=== PATIENT | male | born 1950 | race Caucasian/White ===

== ENCOUNTER 2019-10-18 19:21 | Inpatient (IN) | payer MEDICARE ==
[2019-10-18 19:00] VITALS: BP 108/69
[2019-10-18 19:15] VITALS: BP 111/77
[~2019-10-18 19:21] MED LIST: ACET325C7 PO; AMLO2.5T4 PO; ATOR40TA PO; LACT10SO27 PO; LOSA100T57 PO; MELA5TAB14 PO; MULT-166 PO; OMEG-160 PO; OXYC-473 PO; POLY17PO6 NG; TMSL.4C PO; TR1C15 TP
[2019-10-18 19:30] VITALS: BP 118/81
[2019-10-18] MEDS ORDERED: LEVETIRACETAM INJECTION 1,000 MG in NS (IVPB) 100 ML IV SCH ×4 (19:30)
[2019-10-18] MEDS ORDERED: LORazepam INJ 2 MG/ML (ATIVAN) VIAL IVP PRN (19:30)
[2019-10-18] MEDS ORDERED: NS IV 1000 ML 1,000 ML IV SCH (19:30)
[2019-10-18] MEDS ORDERED: CATHETER FLUSH 10 ML SYR IV PRN (19:30)
--- NOTE | 2019-10-18 19:31 | Short Stay Summary-Hospitalist ---
History of Present Illness HPI/Chief Complaint CC: New onset seizure 6 hours after arriving from [facility] to [facility] HPI: This is a 68yoWM patient who arrived from via private vehicle to [facility] after a complicated course at for brain compression requiring TOOL AND DIE INSPECTOR shunt yesterday who had just had an uneventful stay at [facility] when he groaned and the RN noted patient was unresponsive and had seizure activity with clenching of jaw and moving extremities in a flail like manner. RN called me immediately after rapid response called and patient was transferred to ICU but remained with stable VS. Patient was given Ativan 0.5mg IV x 1 which aborted the seizure and is currently responding and moving all extremities with command but drowsy. Source: RN/MD Exam Limitations: clinical condition Date Seen 10/18/19 Time Seen by a Provider: 19:10 Attending Physician Dena Aceves Erik M MD Referring Physician Date of Admission Oct 18, 2019 at 19:21 Home Medications & Allergies Home Medications Reviewed patient Home Medication Reconciliation performed by pharmacy medication reconciliations remediation technician and/or nursing. Patients Allergies have been reviewed. 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[place]) Alcohol Use: Occasionally Uses Alcohol Beverage of Choice: Beer Smoking Status: Never a Smoker Recent Hopitalizations: No Immunizations Up To Date Pediatric: Yes Date of Pneumonia Vaccine: Jan 18, 2019 Seasonal Allergies Seasonal Allergies: No Past Medical History Surgeries: Brain Shunt (10/17/19) Cardiac: Hypertension hydrocephalus Genitourinary: Benign Prostatic Hyperpl retention HEENT: Double Vision Loss of Vision: Denies Hearing Impairment: Denies Cancer: Melanoma Did You Recieve Any Treatments: Yes What Type of Treatment Did You: Surgical Intervention History of Blood Disorders: No Adverse Reaction to Blood Shelley: No Family History Arthritis G8 SISTER Hypertension G8 SISTER Review of Systems Constitutional: see HPI Physical Exam Physical Exam Vital Signs Capillary Refill : Height, Weight, BMI Height: '" Weight: lbs. oz. kg; 20.96 BMI Method: General Appearance: No Apparent Distress, WD/WN, Chronically ill, Thin Eyes: Bilateral Eye Normal Inspection, Bilateral Eye PERRL HEENT: PERRL/EOMI, Normal ENT Inspection, Pharynx Normal Neck: Full Range of Motion, Normal Inspection, Non Tender, Supple, Carotid Bruit Respiratory: Chest Non Tender, Lungs Clear, Normal Breath Sounds, No Accessory Muscle Use, No Respiratory Distress Cardiovascular: Regular Rate, Rhythm, No Edema, No Gallop, No JVD, No Murmur, Normal Peripheral Pulses Gastrointestinal: Normal Bowel Sounds, No Organomegaly, No Pulsatile Mass, Non Tender, Soft Back: Normal Inspection, No CVA Tenderness, No Vertebral Tenderness Extremity: Normal Capillary Refill, Normal Inspection, Normal Range of Motion, Non Tender, No Calf Tenderness, No Pedal Edema Neurologic/Psychiatric: Alert, Oriented x3, No Motor/Sensory Deficits (drowsy), Normal Mood/Affect, range aid II-XII Norm as Tested Skin: Normal Color, Warm/Dry Lymphatic: No Adenopathy Results Results/Procedures Labs Patient resulted labs reviewed. Short Stay Diagnosis Discharge Diagnosis-Short Stay Admission Diagnosis Assessment: Seizure new onset s/p TOOL AND DIE INSPECTOR shunt at [facility] 10/17/19 due to brain compression Low pressure hydrocephalus SIADH BPH Lomeli catheter due to retention Urology placed at [facility] COVID-19 negative Acute encephalopathy ETOH use Plan: IV Keppra IV Ativan [facility] transfer Final Discharge Diagnosis Assessment: Seizure new onset s/p TOOL AND DIE INSPECTOR shunt at [facility] 10/17/19 due to brain compression Low pressure hydrocephalus SIADH BPH Lomeli catheter due to retention Urology placed at [facility] COVID-19 negative Acute encephalopathy ETOH use Plan: IV Keppra IV Ativan [facility] transfer Conclusion Plan Assessment: Seizure new onset s/p TOOL AND DIE INSPECTOR shunt at [facility] 10/17/19 due to brain compression Low pressure hydrocephalus SIADH BPH Lomeli catheter due to retention Urology placed at [facility] COVID-19 negative Acute encephalopathy ETOH use Plan: IV Keppra IV Ativan KU transfer CT brain without contrast Vitals stable and no neuro deficits Diagnosis/Problems Diagnosis/Problems (1) Seizure (2) Hydrocephalus DENA ACEVES DO Oct 18, 2019 19:31
[2019-10-18 19:45] VITALS: BP 117/82
[2019-10-18 20:15] VITALS: BP 137/86
--- OUTSIDE RECORDS SUMMARY | 2019-10-18 20:41 | XMS REPORT | Continuity of Care Document ---
Author Organization Unknown Address Unknown Phone Unavailable Allergies Active Description Code Type Severity Reaction Onset Reported/Identified Relationship to Patient Clinical Status Yes No Allergy Information Available [id number] Drug Allergy Unknown N/A 020 Medications There is no data. Problems There is no data. Procedures There is no data. Results Test Result Range Capillary blood glucose measurement by g lucometer (mass/volume) - 10/18/19 18:51 Capillary blood glucose measurement by glucometer (mas s/volume) 138 mg/dL 70-110 Complete blood count (CBC) with automate d white blood cell (WBC) differential - 10/18/19 19:10 Blood leukocytes automated count (number/volume) 11.8 10*3/uL 4.3-11.0 Blood erythrocytes automated count (number/volume) 4.29 10*6/uL 4.35-5.85 Venous blood hemoglobin measurement (mass/volume) 13.5 g/dL 13.3-17.7 Blood hematocrit (volume fraction) 41 % 40-54 Automated erythrocyte mean corpuscular volume 95 [ foz_us] 80-99 Automated erythrocyte mean corpuscular h emoglobin (mass per erythrocyte) 31 pg 25-34 Automated erythrocyte mean corpuscular h emoglobin concentration measurement (mass/volume) 33 g/dL 32-36 Automated erythrocyte distribution width ratio 13. 1 % 10.0- 14.5 Automated blood platelet count (count/volume) 351 10*3/uL 130-400 Automated blood platelet mean volume measurement 9.3 [foz_us] 7.4-10.4 Automated blood neutrophils/100 leukocytes 85 % 42-75 Automated blood lymphocytes/100 leukocytes 9 % 12-44 Blood monocytes/100 leukocytes 6 % 0-12 Automated blood eosinophils/100 leukocytes 0 % 0-10 Automated blood basophils/100 leukocytes 0 % 0-10 Blood neutrophils automated count (number/volume) 10.1 10*3 1.8-7.8 Blood lymphocytes automated count (number/volume) 1.0 10*3 1.0-4.0 Blood monocytes automated count (number/volume) 0. 7 10*3 0.0-1.0 Automated eosinophil count 0.0 10*3/uL 0 .0-0.3 Automated blood basophil count (count/volume) 0.0 10*3/uL 0.0-0.1 Comprehensive metabolic panel - 10/18/19 19:10 Serum or plasma sodium measurement (moles/volume) 138 mmol/L 135-145 Serum or plasma potassium measurement (moles/volume) 4.0 mmol/L 3.6-5.0 Serum or plasma chloride measurement (moles/volume) 103 mmol/L 98-107 Carbon dioxide 18 mmol/L 21-32 Serum or plasma anion gap determination (moles/volume) 17 mmol/L 5-14 Serum or plasma urea nitrogen measurement (mass/volume ) 15 mg/dL 7-18 Serum or plasma creatinine measurement (mass/volume) 0.76 mg/dL 0.60-1.30 Serum or plasma urea nitrogen/creatinine mass ratio 20 NRG Serum or plasma creatinine measurement w ith calculation of estimated glomerular filtration rate > NRG Serum or plasma glucose measurement (mass/volume) 134 mg/dL 70-105 Serum or plasma calcium measurement (mass/volume) 9.2 mg/dL 8.5-10.1 Serum or plasma total bilirubin measurement (mass/volu me) 0.9 mg/dL 0.1-1.0 Serum or plasma alkaline phosphatase akil surement (enzymatic activity/volume) 68 U/L 40-136 Serum or plasma aspartate aminotransfera se measurement (enzymatic activity/volume) 15 U/L 5-34 Serum or plasma alanine aminotransferase measurement (enzymatic activity/volume) 25 U/L 0-55 Serum or plasma protein measurement (mass/volume) 6.5 g/dL 6.4-8.2 Serum or plasma albumin measurement (mass/volume) 4.0 g/dL 3.2-4.5 CALCIUM CORRECTED 9.2 mg/dL 8.5-10.1 Blood lactic acid measurement (moles/vol ume) - 10/18/19 19:10 Blood lactic acid measurement (moles/volume) 7.27 mmol/L 0.50-2.00 PROCALCITONIN (PCT) - 10/18/19 19:10 PROCALCITONIN (PCT) 0.03 ng/mL <0.10 Serum or plasma troponin i.cardiac measu rement (mass/volume) - 10/18/19 19:10 Serum or plasma troponin i.cardiac measurement (mass/v olume) < ng/mL <0.028 Encounters ACCT No. Visit Date/Time Discharge Status Pt. Type Provider Facility Loc./Unit Complaint [id number] 10/18/2019 19:21:[address] Inpatient LAURA CHEN DO Via [facility] ICU RAPID [id number] 10/18/2019 13:20:[address] Inpatient CHENSHAUN PAGAN DOI Via [facility] ICU HYDROCEPHALIUS
--- NOTE | 2019-10-18 23:03 | NUR ---
APPROX. 1900 - RECEIVED PT FROM ARU APPROX. 194 - PT TO CT SCAN 2029 - EMS LEFT FACILITY WITH PATIENT - HEADED TO [facility] 2044 - REPORT CALLED TO BASILIA GORDILLO AT [facility] 2099 - UPDATED FAMILY
--- NOTE | 2019-10-21 08:32 | Physician Query Clarification ---
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 There is moderate dilatation of the 3rd and 4th ventricles with no significant dilatation of the lateral ventricles. We do not have a previous study for comparison of ventricular size. There is a trace of blood in the occipital horns on both sides. There is a small 5 mm area of hemorrhage in the right frontal cortex superiorly. Shunt catheter is in place, as above. There is no significant mass effect. There is some subdural air on the left side compatible with recent surgery with a minimal trace of subdural fluid. Treatment: IV Levetiracetam Question: Can you further specify the underlying cause of the seizure per the clinical indicators above? Please document a response in the Progress Notes or Discharge Summary. 1. Hydrocephalus 2. Seizure underlying cause undetermined 3. Other, with explanation of the clinical findings. 4. Clinically undetermined, no explanation for the clinical findings. PHYSICIAN RESPONSE Can you specify per above: 1 Please remember a lack of response to the above will prompt a phone page by CDI/Coding staff. In responding to this query, please exercise your independent professional judgment. The purpose of this communication is to more accurately reflect the complexity of your patients condition. The fact that a question is asked does not imply that any particular answer is desired or expected. Thank you for your timely response to this clarification. Requestors name: Kyler [email or web address] THIS PHYSICIAN QUERY FORM IS A PERMANENT PART OF THE MEDICAL RECORD KYLER WELSH Oct 21, 2019 08:32 LAURA CHEN DO Oct 21, 2019 20:43
== END 2019-10-18 20:30 | disposition short-term general hospital (02) | DRG 57 ==
LOC: ICU 19:21
PROVIDERS: ADMIT Internal Medicine; ATTEND Internal Medicine
DX: G91.8 Other hydrocephalus (principal); G93.40 Encephalopathy, unspecified; E22.2 Syndrome of inappropriate secretion of antidiuretic hormone; R56.9 Unspecified convulsions; Z98.2 Presence of cerebrospinal fluid drainage device; N40.1 Benign prostatic hyperplasia with lower urinary tract symptoms; R33.8 Other retention of urine; Z72.89 Other problems related to lifestyle
CPT/HCPCS: 94760

== ENCOUNTER 2019-10-21 10:14 | Inpatient (IN) | payer MEDICARE ==
[~2019-10-21] VITALS: Ht 76 cm; Wt 79.2 kg
[2019-10-21] MEDS ORDERED: LEVE750T19 PO (13:15)
[2019-10-21] MEDS ORDERED: NF-NACL1GT PO (13:15)
[2019-10-21] MEDS ORDERED: FLEET ENEMA ADULT 1 EA BTL PR PRN (13:15)
[2019-10-21] MEDS ORDERED: BISACODYL 10 MG SUPP (DULCOLAX) PR PRN (13:15)
[2019-10-21] MEDS ORDERED: ALPRAZolam 0.25 MG (XANAX) TAB PO PRN (13:15)
[2019-10-21] MEDS ORDERED: DOCUSATE SODIUM 100 MG (COLACE) CAP PO PRN (13:15)
[2019-10-21] MEDS ORDERED: CALCIUM CARBONATE 500 MG (TUMS) TAB.CHEW PO PRN (13:15)
[2019-10-21] MEDS ORDERED: LACTULOSE SYRUP 10GM/15ML (ENULOSE) 30ML UDC PO PRN (13:15)
[2019-10-21] MEDS ORDERED: ACETAMINOPHEN 500 MG TAB (TYLENOL) PO PRN (13:15)
[2019-10-21] MEDS ORDERED: LOPERAMIDE 2 MG (IMODIUM) TABLET PO PRN (13:15)
[2019-10-21] MEDS ORDERED: diphenhydrAMINE 25 MG TAB (BENADRYL) PO PRN (13:15)
[2019-10-21] MEDS ORDERED: ONDANSETRON 4 MG (ZOFRAN) ORAL DISSOLVE TAB PO PRN (13:15)
[2019-10-21] MEDS ORDERED: guaiFENesin/CODEINE (ROBITUSSIN AC) 10ML UDC PO PRN (13:15)
[2019-10-21] MEDS ORDERED: HEPA500016 IJ (13:15)
[2019-10-21] MEDS ORDERED: MELATONIN 3 MG TABLET PO PRN (13:15)
--- NOTE | 2019-10-21 13:17 | NUR ---
I ENTERED THE MED REC USING THE DISCHARGE ORDERS FROM - ONCE MEDS HAVE BEEN CONTINUED I WILL INTERVIEW THE PT AND MAKE ANY CHANGES TO THE MED REC/NOTES NEEDED Addendum: 10/24/19 at 1514 by THAD ROLLE CPhT I SPOKE WITH THE PT AND CALLED THE [facility] TO COMPLETE THE MED REC MEDS REMOVED DUE TO PT NOT TAKING BEFORE : HEPARIN KEPPRA 750MG SODIUM CHLORIDE 1GM LACTULOSE TYLENOL 325MG AMLODIPINE 2.5MG MELATONIN 5MG OXYCODONE 5MG TRIAMCINOLONE 0.1% CM PT HAS TAKEN FLOMAX 0.4MG BEFORE HOWEVER THE LAST TIME IT WAS FILLED WAS 08-02-2018 #30- DUE TO THE RX AND PAST DUE FILL I DID NOT INCLUDE IT ON THE MED REC MEDICATIONS THAT HAVE BEEN ADDED DUE TO PT TAKING PRIOR TO : ZOFRAN 4MG LAST FILLED 09-27-2019 #40 TRIAMTERENE/HCTZ 37.5/25MG LAST FILLED 08-26-2019 #90 FILL DATES FOR MEDS THAT HAVE NOT CHANGED: ATORVASTATIN 80MG (PT TAKES TAB TO EQUAL 40MG) LAST FILLED 09-18-2019 #15/30DS LOSARTAN 100MG : LAST FILLED 10-08-2019 #30/30DS OTC MEDS THE PT TAKES: FISH OIL MIRALAX PRN MTV
--- NOTE | 2019-10-21 15:08 | NUR ---
Admitted to room 231, with an admitting diagnosis of hydrocephalus, on 10-21-19 from via , accompanied by .YOLANDA TORRE introduced to surroundings, call light, bed controls, phone, TV, temperature control, lights, meal times, smoking policy, visitor policy, side rail policy, bathrooms and showers. Patient Rights given to patient in the handbook.YOLANDA TORRE verbalizes understanding that [facility] is not responsible for the loss or damage to any personal effects or valuables that are kept in the patients posession during their hospitalization. The following Patient Care Plans were discussed with the : Discharge Planning, ,, and falls. YOLANDA TORRE verbalizes understanding of Interdisciplinary Patient Education. Patient and/or family were informed about the Rapid Response Team and its purpose. Patient received Patient Rights Booklet, which includes Privacy Act Statement and Data Collection Information Summary.
[2019-10-21 15:20] VITALS: BP 98/67
--- NOTE | 2019-10-21 15:31 | Occupational Therapy Eval ---
OT Evaluation-General/PLF Medical Diagnosis Admission Date Medical Diagnosis: hydrocephaly; s/p shunt placement Onset Date: Oct 07, 2019 Therapy Diagnosis Therapy Diagnosis: Decreased ADL status Precautions Precautions/Isolations: Fall Prevention, Standard Precautions, Pressure Ulcer Weight Bear Status Restrictions: No push/pull/lift/bend more than 10 lbs, shower neck down until 10/21. On 10/22 baby shampoo to wash incisions daily, pat dry and leave open to air. His abdominal incision is open to air. Do not submerge incision under water at all for 4 weeks (pool/tub). No ointment/cream/lotions to the incision line. 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 Syncopal episode prior to admission 10/05 where he was found on the floor. 10/05 hydrocephalus noted on scan. 10/06 found obtunded, intubated to protect airways, scan showed worsening hydro cephalus, transferred to [facility]. Pt transferred to [facility] ARU on 10/18/2019. Pt readmits to due to seizure episode, readmits to ARU 10/21/19. Social History Home: Multilevel Current Living Status: Significant Other Entry Into Home: Stairs Without Railing Steps Into Home: 2 Steps Inside Home: 8 ADL-Prior Level of Function SCALE: Activities may be completed with or without assistive devices. 3-Bnucvoglii-ttwfhlk completes the activity by him/herself with no assistance from a helper. 5-Set-up or Clean-up Assistance-helper sets up or cleans up; patient completes activity. [place] assists only prior to or following the activity. 4-Supervision or Touching Assistance-helper provides verbal cues and/or touching/steadying and/or contact guard assistance as patient completes activity. Assistance may be provided throughout the activity or intermittently. 3-Partial/Moderate Assistance-helper does LESS THAN HALF the effort. [place] lifts, holds or supports trunk or limbs, but provides less than half the effort. 2-Substantial/Maximal Assistance-helper does MORE THAN HALF the effort. [place] lifts or holds trunk or limbs and provides more than half the effort. 5-Spxojtiiw-xmisbl does ALL the effort. Patient does none of the effort to compl ete the activity. Or, the assistance of 2 or more helpers is required for the patient to complete the activity. If activity was not attempted, code reason: 7-Patient Refused. 9-Not Applicable-not attempted and the patient did not perform the activity before the current illness, exacerbation or injury. 10-Not Attempted due to Environmental Limitations-(lack of equipment, weather restraints, etc.). 88-Not Attempted due to Medical Conditions or Safety Concerns. ADL PLOF Comments Pt states IND without use of AD prior to admission. Pt no longer works, drives Self Care: Independent Functional Cognition: Independent DME/Equipment: Bath Chair, Grab Bars, Shower DME/Equipment Comments Pt's doffed glass door to walk in shower, gb and sc in shower. 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 Drive Self: Yes OT Current Status Subjective Pt transported by private vehicle to [facility]. Pt seen outside with , pt completes car transfer with CGA with walker to w/c. Pt pushed to ARU floor. Pt knowledgable of ARU expectations and OT role as pt was admitted 11/17 and d/c'd following day following seizure. Pt denies pain, alert/ oriented. Pt unable to answer some historical questions, though pt denies cognitive/ problem solving problems since seizures. Mental Status/Objective Patient Orientation: Person, Place, Situation Attachments: Lomeli Catheter Current Glasses/Contacts: Yes Hearing Aids: No Dentures/Partials: No Hand Dominance: Right Upper Extremity ROM WFL BUE Upper Extremity Coordination WFL BUE Upper Extremity Sensation WFL BUE Upper Extremity Strength WFL BUE (4/5 bilaterally) ADL-Treatment Eating (QC): 5 (per pt, pt is IND with task. Per previous notes, pt requires s/u for activity) Oral Hygiene (QC): 4 (CGA: based on clinical judgment, pt would require CGA while standing at sink level. Based on coordination/ sequencing, pt would be IND with task.) Shower/Bathe Self (QC): 7 (Pt denies at this time due to fatigue. ) Upper Body Dressing (QC): 7 (Pt denies at this time due to fatigue. ) Lower Body Dressing (QC): 7 (Pt denies at this time due to fatigue. ) On/Off Footwear (QC): 7 (Pt denies at this time due to fatigue. ) Toileting Hygiene (QC): 7 (Pt denies utilizing bathroom, stating no need for BM . Lomeli present.) Other Treatments Pt completes car transfer with CGA. Pushed to ARU. Sit to stand SBA and ambulates to chair with CGA. Sits with control, no pain noted. WFL ROM/ MMT. Pt provides hx, corrects pt intermittently. Pt denies cognition/ memory changes. Pt denies vision changes, though diplopia since prior aneurysm. Pt states fatigued, stating he didn't think he needed therapy. Pt's states she would like him to be at a higher functional activity tolerance level/ strength level prior to d/c home. Pt agrees to therapy goals, all needs met, call light in reach. Pt questioned if desires water, pt denies. Education OT Patient Education: Rehab process, Safety issues, Transfer techniques Teaching Recipient: Patient Teaching Methods: Demonstration, Discussion Response to Teaching: Verbalize Understanding, Return Demonstration OT Dairy Bacteriologist Goals Dairy Bacteriologist Goals Time Frame: Nov 04, 2019 Eating (QC): 6 Oral Hygiene (QC): 6 Toileting Hygiene (QC): 6 Shower/Bathe Self (QC): 6 Upper Body Dressing (QC): 6 Lower Body Dressing (QC): 6 On/Off Footwear (QC): 6 Additional Goals: 1-Demonstrate ADL Tasks, 2-Verbalize Understanding, 3- ImproveStrength/Tristan 1=Demonstrate adherence to instructed precautions during ADL tasks. 2=Patient will verbalize/demonstrate understanding of assistive devices/modific ations for ADL. 3=Patient will improve strength/tolerance for activity to enable patient to perform ADL's. OT Education/Plan Problem List/Assessment Assessment: Decreased Activ Tolerance, Decreased UE Strength, Dependent Transfers, Impaired Funct Balance, Impaired I ADL's, Impaired Self-Care Skills Discharge Recommendations Plan/Recommendations: Continue POC Therapy Discharge Recommendati: Home & Family Treatment Plan/Plan of Care Treatment,Training & Education: Yes Patient would benefit from OT for education, treatment and training to promote independence in ADL's, mobility, safety and/or upper extremity function for ADL's. Plan of Care: ADL Retraining, Caregiver Training, Concurrent Therapy, Functional Mobility, Group Exercise/Act as Ind, UE Funct Exercise/Act Treatment Duration: Nov 04, 2019 Frequency: At least 5 of 7 days/Wk (IRF) Estimated Hrs Per Day: 1.5 hours per day Agreement: Yes Rehab Potential: Good Time/GCodes Start Time: 15:00 Stop Time: 15:20 Total Time Billed (hr/min): 20 Billed Treatment Time 1XAVI (20) SHALINI PURI OTLuis Fernando Oct 21, 2019 15:31
[2019-10-21 17:47] VITALS: BP 98/67
[2019-10-21] MEDS ORDERED: HEPARIN SODIUM PORCINE IJ SCH (18:15)
[2019-10-21] MEDS ORDERED: [UNRECOGNIZED DRUG - OTHER] IJ SCH (18:15)
[2019-10-21] MEDS ORDERED: NON-FORMULARY MEDICATION 1 EA EA (Acetaminophen (Tylenol) 650 MG) PO PRN (18:15)
[2019-10-21] MEDS ORDERED: ACETAMINOPHEN 325 MG TABLET PO PRN (18:15)
[2019-10-21 19:00] VITALS: BP 138/79
--- OUTSIDE RECORDS SUMMARY | 2019-10-21 19:58 | XMS REPORT | Continuity of Care Document ---
Author Organization Unknown Address Unknown Phone Unavailable Allergies Active Description Code Type Severity Reaction Onset Reported/Identified Relationship to Patient Clinical Status Yes No Allergy Information Available [id number] Drug Allergy Unknown N/A 020 Medications There is no data. Problems Date Dx Coded Attending Type Code Diagnosis Diagnosed By 10/18/2019 CHEN DO, LAURA Ot E78.00 PURE HYPERCHOLESTEROLEMIA, UNSPECIFIED 10/18/2019 CHEN DO, LAURA Ot G91.9 HYDROCEPHALUS, UNSPECIFIED 10/18/2019 CHEN DO, LAURA Ot I10 ESSENTIAL (PRIMARY) HYPERTENSION 10/18/2019 CHEN DO, LAURA Ot R33.9 RETENTION OF URINE, UNSPECIFIED 10/18/2019 CHEN DO, LAURA Ot R56.9 UNSPECIFIED CONVULSIONS 10/18/2019 CHEN DO, LAURA Ot Z98.2 PRESENCE OF CEREBROSPINAL FLUID DRAINAGE Procedures There is no data. Results Test [...] i.cardiac measurement (mass/v olume) < ng/mL <0.028 Bacterial blood culture - 10/18/19 19:10 Bacterial blood culture NG NRG Bacterial blood culture - 10/18/19 19:15 QUANTITY OF GROWTH Isolated NRG Bacterial blood culture [id number] NRG SUSCEPTIBILITY SEE COMMENT NRG Encounters ACCT No. Visit Date/Time Discharge Status Pt. Type Provider Facility Loc./Unit Complaint [id number] 10/18/2019 19:21:00 020 20:30:00 DIS Inpatient LAURA CHEN DO V [facility] ICU RAPID [id number] 10/18/2019 13:20:00 020 18:50:00 DIS Outpatient LAURA CHEN DO Via [facility] IRF HYDROCEPHALIUS [id number] 10/21/2019 15:00:[address] Inpatient LAURA CHEN DO [facility] [place] IRF HYDROCEPHALUS;S/P SHUNT
[2019-10-21] MEDS ORDERED: LEVETIRACETAM 750 MG PO SCH (21:00)
[2019-10-21] MEDS ORDERED: NON-FORMULARY MEDICATION 1 EA EA (Melatonin 10 MG) PO SCH (21:00)
[2019-10-21] MEDS ORDERED: NON-FORMULARY MEDICATION 1 EA EA (Lactulose 30 ML) PO SCH (21:00)
--- NOTE | 2019-10-21 21:03 | PM&R Post Admission Assessment ---
PM&R HP Date of Visit: Oct 21, 2019 Time of Visit: 18:30 History of Present Illness CC: Debility following seizure 6 hours after IRF admit Monday due to PHYSICAL MEDICINE TEACHER shunt overdrainage HPI: (CC: New onset seizure 6 hours after arriving from [facility] to IRF HPI: This is a 68yoWM patient who arrived from via private vehicle to IRF after a complicated course at for brain compression requiring PHYSICAL MEDICINE TEACHER shunt yesterday who had just had an uneventful stay at IRF when he groaned and the RN noted patient was unresponsive and had seizure activity with clenching of jaw and moving extremities in a flail like manner. RN called me immediately after rapid response called and patient was transferred to ICU but remained with stable VS. Patient was given Ativan 0.5mg IV x 1 which aborted the seizure and is currently responding and moving all extremities with command but drowsy). Patient currently is doing much better and is ready to eat breakfast. I spoke to COTTON PICKING MACHINE OPERATOR regarding the plan for the PHYSICAL MEDICINE TEACHER shunt since it was draining too much CSF causing seizure. Keppra tolerated. Past Dnbeibs-Ubjwll-Tjgsas Hx Past Med/Social Hx: Reviewed Nursing Past Med/Soc Hx, Reviewed and Corrections made Patient Social History Marrital Status: Employed/Student: retired ([employer]) Alcohol Use: Denies Use Number of Drinks Today: AA Alcohol Beverage of Choice: Beer Recreational Drug Use: No Smoking Status: Former Smoker Former Smoker, Quit: Oct 20, 2013 Type Used: Cigarettes Physical Abuse Screen: No Sexual Abuse: No Recent Foreign Travel: No Contact w/other who traveled: No Recent Hopitalizations: Yes Recent Infectious Disease Expo: No Immunizations Up To Date Pediatric: Yes Date of Pneumonia Vaccine: Jan 18, 2019 Seasonal Allergies Seasonal Allergies: No Past Medical History Surgeries: Brain Shunt Cardiac: Hypertension hydrocephalus Genitourinary: Benign Prostatic Hyperpl retention HEENT: Double Vision Loss of Vision: Denies Hearing Impairment: Denies Cancer: Melanoma Did You Recieve Any Treatments: Yes What Type of Treatment Did You: Surgical Intervention History of Blood Disorders: No Adverse Reaction to Blood Shelley: No Family History Arthritis G8 SISTER Hypertension G8 SISTER Self Care: Independent Functional Cognition: Independent Occupation: retired [employer] Drive Self: Yes Eatin (per pt, pt is IND with task. Per previous notes, pt requires s/u for activity) Oral Hygiene: 4 (CGA: based on clinical judgment, pt would require CGA while s tanding at sink level. Based on coordination/ sequencing, pt would be IND with task.) Shower/Bathe Self: 7 (Pt denies at this time due to fatigue. ) Upper Body Dressin (Pt denies at this time due to fatigue. ) Lower Body Dressin (Pt denies at this time due to fatigue. ) On/Off Footwear: 7 (Pt denies at this time due to fatigue. ) Toileting Hygiene: 7 (Pt denies utilizing bathroom, stating no need for BM. Lomeli present.) PM&R Allergy/Meds/Data Review Allergies Coded Allergies: No Allergy Information Available (Unverified , 10/18/19) Home Medications Scheduled Amlodipine Besylate (Amlodipine Besylate), 7.5 MG PO DAILY, (Reported) Atorvastatin Calcium (Lipitor), 40 MG PO DAILY, (Reported) Heparin Sodium,Porcine/Pf (Heparin Sod 5,000 Unit/ 0.5 ml), 5,000 UNIT IJ Q8H, (Reported) Lactulose (Lactulose), 30 ML PO TID, (Reported) Levetiracetam (Keppra), 750 MG PO BID, (Reported) Losartan Potassium (Losartan Potassium), 100 MG PO DAILY, (Reported) Melatonin (Melatonin), 10 MG PO HS, (Reported) Multivitamin with Minerals (Multivitamins with Minerals), 1 EACH PO DAILY, (Reported) [place]-3/Dha/Epa/Fish Oil (Fish Oil 1,000 mg Softgel), 1 EACH PO DAILY, (Reported) Polyethylene Glycol 3350 (Miralax), 17 GM NG BID, (Reported) Sodium Chloride (Sodium Chloride), 2 GM PO BID, (Reported) Tamsulosin HCl (Flomax), 0.4 MG PO DAILY, (Reported) Triamcinolone Acet (Triamcinolone Acetonide 0.1% Cream), 1 APPLIC TP BID, (Reported) Scheduled PRN Acetaminophen (Tylenol), 650 MG PO Q4H PRN for PAIN-MILD (1-4), (Reported) Oxycodone HCl (Roxicodone), 5 MG PO Q4H PRN for PAIN-SEVERE (8-10), (Reported) Current Medications Current Medications Reviewed Review of Systems Constitutional: see HPI, dizziness, weakness EENTM: no symptoms reported Respiratory: no symptoms reported Cardiovascular: no symptoms reported Gastrointestinal: no symptoms reported Genitourinary: no symptoms reported Musculoskeletal: muscle twitching, muscle weakness Skin: no symptoms reported Psychiatric/Neurological: Depressed All Other Systems Reviewed Negative Unless Noted: Yes Physical Exam Physical Exam Vital Signs Vital Signs - First Documented 10/21/19 15:20 Temp 36.6 Pulse 86 Resp 18 B/P (MAP) 98/67 Pulse Ox 94 O2 Delivery Room Air Capillary Refill : Height, Weight, BMI Height: '" Weight: lbs. oz. kg; 135.21 BMI Method: General Appearance: No Apparent Distress, WD/WN, Chronically ill, Thin Eyes: Bilateral Eye Normal Inspection, Bilateral Eye PERRL HEENT: PERRL/EOMI, Normal ENT Inspection, Pharynx Normal Neck: Full Range of Motion, Normal Inspection, Non Tender, Supple, Carotid Bruit Respiratory: Chest Non Tender, Lungs Clear, Normal Breath Sounds, No Accessory Muscle Use, No Respiratory Distress Cardiovascular: Regular Rate, Rhythm, No Edema, No Gallop, No JVD, No Murmur, Normal Peripheral Pulses Gastrointestinal: Normal Bowel Sounds, No Organomegaly, No Pulsatile Mass, Non Tender, Soft Back: Normal Inspection, No CVA Tenderness, No Vertebral Tenderness Extremity: Normal Capillary Refill, Normal Inspection, Normal Range of Motion, Non Tender, No Calf Tenderness, No Pedal Edema Neurologic/Psychiatric: Alert, Oriented x3, No Motor/Sensory Deficits, Normal Mood/Affect, musician instrumental II-XII Norm as Tested, Motor Weakness (generalized weakness all extremities) Skin: Normal Color, Warm/Dry Lymphatic: No Adenopathy PM&R Medical Assessment & Plan REHAB/MEDICAL ASSESSMENT AND PLAN: REHAB IMPAIRMENT GROUP: Debility following PHYSICAL MEDICINE TEACHER shunt and seizure ETIOLOGIC DIAGNOSIS: Debility following PHYSICAL MEDICINE TEACHER shunt and seizure alteration The comorbidities that impact the patients function and/or functional outcome by: Seizure new onset, PHYSICAL MEDICINE TEACHER shunt recently required pump alteration, frail status REHAB PLAN: The patient is being admitted to our comprehensive inpatient rehabilitation facility and can tolerate the intensity of service consisting of at least: 180 minutes of therapy a day, 5 out of 7 days a week Rehab treatment will consist of: PT OT will focus on regaining function and ambulatory function and increased in ADL's The patient/family has a good understanding of our discharge process and will benefit from an interdisciplinary inpatient rehabilitation program. The patient has potential to make improvement and is in need of at least two of the following multidisciplinary therapies including but not limited to physical, occupational, speech, and prosthetics and orthotics. Additionally the patient will need services from respiratory, nutritional services, wound care, psychology, etc. (Customize this to each patient). Given the patients complex condition and risk of further medical complications, rehabilitation services cannot be safely or effectively provided at a lower level of care such as a halfway facility. BARRIERS TO DISCHARGE: Seizure and PHYSICAL MEDICINE TEACHER shunt variability ESTIMATED LOS: 7 days DISPOSITION: Home RELEVANT CHANGES SINCE PREADMISSION SCREENING: I have compared the patients medical and functional status at the time of the preadmission screening and there are: no changes PROGNOSIS: Good REHABILITATION GOALS: 1. PT OT will focus on regaining function and ambulatory function and increased in ADL's All the above goals were reviewed with the patient and he/she is in agreement. By signing this document, I acknowledge that I have personally performed a full physical examination on this patient within 24 hours of admission to this inpatient rehabilitation facility and have determined the patient to be able to tolerate the above course of treatment at an intensive level for a reasonable period of time. I will be completing a detailed individualized Plan of Care for this patient by day #4 of the patients stay based upon the Preadmission Screen, the Post-Admission Evaluation, and the therapy evaluations. Admission Dx/Comorbidities: (1) Hydrocephalus ICD Codes: G91.9 - Hydrocephalus, unspecified (2) Seizure ICD Codes: R56.9 - Unspecified convulsions (3) History of alcohol use ICD Codes: Z87.898 - Personal history of other specified conditions (4) Thin build ICD Codes: R68.89 - Other general symptoms and signs (5) Frailty ICD Codes: R54 - Age-related physical debility Assessment/Plan Assessment and Plan Assess & Plan/Chief Complaint Assessment: Low pressure hydrocephalus Seizure new onset Monday in IRF prompting return to [facility] Former alcohol user HTN BPH Plan: Monitor BP Check labs in am Monitor PHYSICAL MEDICINE TEACHER shunt IRF protocol LAURA CHEN DO Oct 21, 2019 21:03
[2019-10-21] MEDS: SODIUM CHLORIDE 1 GM TABLET PO SCH (21:05)
[2019-10-21] MEDS: LEVETIRACETAM 500 MG (KEPPRA) TAB PO SCH (21:08)
[2019-10-21] MEDS: MELATONIN 10 MG TABLET PO SCH (21:08)
[2019-10-21] MEDS: DOCUSATE SODIUM 100 MG (COLACE) CAP PO SCH (21:17)
[2019-10-21] MEDS: polyethylene glycoL POWDER 17 GM (MIRALAX) PACK NG SCH (21:17)
[2019-10-21] MEDS: LACTULOSE SYRUP 10GM/15ML (ENULOSE) 30ML UDC PO SCH (21:18)
[2019-10-21] MEDS: polyethylene glycoL POWDER 17 GM (MIRALAX) PACK PO SCH (21:19)
[2019-10-21] MEDS: TRIAMCINOLONE 0.1% CR (KENALOG) 15 GM TUBE TP SCH (21:19)
[2019-10-21] MEDS: SENNA W/DOCUSATE (SENOKOT S) TABLET PO SCH (21:19)
[2019-10-22 05:15] VITALS: BP 139/88
[2019-10-22 05:59] LABS: BASOPHILS % (AUTO) 0 % (0-10); EOSINOPHILS # (AUTO) 0.1 10^3/uL (0.0-0.3); EOSINOPHILS % (AUTO) 1 % (0-10); HEMATOCRIT 36 % (40-54); HEMOGLOBIN 12.5 G/DL (13.3-17.7); LYMPHOCYTES # (AUTO) 1.9 X 10^3 (1.0-4.0); LYMPHOCYTES % (AUTO) 21 % (12-44); MEAN CORPUSCULAR HEMOGLOBIN 32 PG (25-34); MEAN CORPUSCULAR HGB CONC 34 G/DL (32-36); MEAN CORPUSCULAR VOLUME 93 FL (80-99); MEAN PLATELET VOLUME 9.4 FL (7.4-10.4); MONOCYTES # (AUTO) 0.6 X 10^3 (0.0-1.0); MONOCYTES % (AUTO) 6 % (0-12); NEUTROPHILS # (AUTO) 6.5 X 10^3 (1.8-7.8); NEUTROPHILS % (AUTO) 72 % (42-75); PLATELET COUNT 330 10^3/uL (130-400); RED CELL DISTRIBUTION WIDTH 12.7 % (10.0-14.5); WHITE BLOOD COUNT 9.1 10^3/uL (4.3-11.0)
[2019-10-22 06:27] LABS: ALANINE AMINOTRANSFERASE 17 U/L (0-55); ALBUMIN 3.3 GM/DL (3.2-4.5); ALKALINE PHOSPHATASE 62 U/L (40-136); BILIRUBIN,TOTAL 0.8 MG/DL (0.1-1.0); BUN/CREATININE RATIO 21; CALCIUM 8.3 MG/DL (8.5-10.1); CARBON DIOXIDE 23 MMOL/L (21-32); CHLORIDE 102 MMOL/L (98-107); CREATININE SERUM 0.63 MG/DL (0.60-1.30); GFR ESTIMATED > 60; GLUCOSE 101 MG/DL (70-105); POTASSIUM 3.9 MMOL/L (3.6-5.0); SODIUM 134 MMOL/L (135-145); TOTAL PROTEIN 5.4 GM/DL (6.4-8.2)
[2019-10-22] MEDS: DOCUSATE SODIUM 100 MG (COLACE) CAP PO SCH ×2 (08:50→20:57)
[2019-10-22] MEDS: LACTULOSE SYRUP 10GM/15ML (ENULOSE) 30ML UDC PO SCH ×3 (08:50→19:33)
[2019-10-22] MEDS: SENNA W/DOCUSATE (SENOKOT S) TABLET PO SCH ×2 (08:51→19:34)
[2019-10-22] MEDS: polyethylene glycoL POWDER 17 GM (MIRALAX) PACK PO SCH ×2 (08:51→19:33)
--- NOTE | 2019-10-22 08:51 | PM&R Progress Note ---
Subjective HPI/CC On Admission Date Seen by Provider: Oct 22, 2019 Time Seen by Provider: 09:45 Subjective/Events-last exam 10/22/19 Patient doing very well Slept well Labs are normal Needs systolic blood pressure kept less than 160 Sutures on his scalp are maintained Urology consultation for Urinary retention Review of Systems General: Fatigue, Malaise Neurological: Weakness Objective Exam Vital Signs Vital Signs Date Time Temp Pulse Resp B/P (MAP) Pulse Ox O2 Delivery O2 Flow Rate FiO2 10/22/19 09:00 Room Air 10/22/19 05:15 36.8 74 18 139/88 (105) 95 Capillary Refill : Less Than 3 Seconds General Appearance: No Apparent Distress, WD/WN, Chronically ill, Thin HEENT: PERRL/EOMI, Normal ENT Inspection, Pharynx Normal Neck: Full Range of Motion, Normal Inspection, Non Tender, Supple, Carotid Bruit Respiratory: Chest Non Tender, Lungs Clear, Normal Breath Sounds, No Accessory Muscle Use, No Respiratory Distress Cardiovascular: Regular Rate, Rhythm, No Edema, No Gallop, No JVD, No Murmur, Normal Peripheral Pulses Gastrointestinal: Normal Bowel Sounds, No Organomegaly, No Pulsatile Mass, Non Tender, Soft Back: Normal Inspection, No CVA Tenderness, No Vertebral Tenderness Extremity: Normal Capillary Refill, Normal Inspection, Normal Range of Motion, Non Tender, No Calf Tenderness, No Pedal Edema Neurologic/Psychiatric: Alert, Oriented x3, No Motor/Sensory Deficits, Normal Mood/Affect, adhesion tester II-XII Norm as Tested, Motor Weakness (generalized weakness all extremities) Skin: Normal Color, Warm/Dry Lymphatic: No Adenopathy Results/Procedures Lab Laboratory Tests 10/22/19 05:47 Patient resulted labs reviewed. FIM Transfers Therapy Code Descriptions/Definitions Functional [place] Measure: 0=Not Assessed/NA 4=Minimal Assistance 1=Total Assistance 5=Supervision or Setup 2=Maximal Assistance 6=Modified [place] 3=Moderate Assistance 7=Complete IndependenceSCALE: Activities may be completed with or without assistive devices. 6-Kwoasrjhre-nyxwgxp completes the activity by him/herself with no assistance from a helper. 5-Set-up or Clean-up Assistance-helper sets up or cleans up; patient completes activity. Debary assists only prior to or following the activity. 4-Supervision or Touching Assistance-helper provides verbal cues and/or touching/steadying and/or contact guard assistance as patient completes activity. Assistance may be provided throughout the activity or intermittently. 3-Partial/Moderate Assistance-helper does LESS THAN HALF the effort. Debary lifts, holds or supports trunk or limbs, but provides less than half the effort. 2-Substantial/Maximal Assistance-helper does MORE THAN HALF the effort. Debary lifts or holds trunk or limbs and provides more than half the effort. 0-Jjxtgncsn-pebmtq does ALL the effort. Patient does none of the effort to complete the activity. Or, the assistance of 2 or more helpers is required for the patient to complete the activity. If activity was not attempted, code reason: 7-Patient Refused. 9-Not Applicable-not attempted and the patient did not perform the activity before the current illness, exacerbation or injury. 10-Not Attempted due to Environmental Limitations-(lack of equipment, weather restraints, etc.). 88-Not Attempted due to Medical Conditions or Safety Concerns. ADL-Treatment Eating (QC): 5 (per pt, pt is IND with task. Per previous notes, pt requires s/u for activity) Oral Hygiene (QC): 4 (CGA: based on clinical judgment, pt would require CGA while standing at sink level. Based on coordination/ sequencing, pt would be IND with task.) Shower/Bathe Self (QC): 7 (Pt denies at this time due to fatigue. ) Upper Body Dressing (QC): 7 (Pt denies at this time due to fatigue. ) Lower Body Dressing (QC): 7 (Pt denies at this time due to fatigue. ) On/Off Footwear (QC): 7 (Pt denies at this time due to fatigue. ) Toileting Hygiene (QC): 7 (Pt denies utilizing bathroom, stating no need for BM. Lomeli present.) Assessment/Plan Assessment and Plan Assess & Plan/Chief Complaint Assessment: Low pressure hydrocephalus Seizure new onset Monday in IRF prompting return to [facility] Former alcohol user HTN BPH Plan: Monitor BP Check labs in am Monitor TIRE REPAIRER shunt IRF protocol 10/22/19: Urology consultation Monitor blood pressure doing well Monitor for any side effects from TIRE REPAIRER shunt (1) Hydrocephalus (2) Seizure (3) History of alcohol use (4) Thin build (5) Frailty LAURA CHEN DO Oct 22, 2019 08:51
--- NOTE | 2019-10-22 08:55 | ST Cognitive Linguistic Eval ---
Speech Evaluation-General Medical Diagnosis hydrocephaly; s/p shunt placement Onset Date: Oct 07, 2019 Therapy Diagnosis Therapy Diagnosis: Cognitive-communication Referral Referring Physician: Dr. Aceves Medical History Pertinent Medical History: HTN Reviewed History: Yes Social History Current Living Status: Significant Other Speech PLF-Current Status Prior Level of Function Patient lived with his SO and was independent with his daily needs. Subjective Patient was very pleasant and cooperative with the cognitive assessment. Language Eval: Auditory Comprehends Simple Yes/No Ques: Functional Indent/Objects Multiple Rodriguez: Functional Ident/Pics in Multiple Rodriguez: Functional Follows 1-Step Commands: Functional Follows Complex Directions: Functional Follows General Conversations: Functional Language Eval: Verbal Language Completes Spontaneous Greeting: Functional Produces Auto, Serial Info: Functional Imitates Simple Words/Phrases: Functional Word Finding: Functional Requests Basic Needs: Functional States Basic Personal Info: Functional Expresses Complex Ideas: Functional Objective Cognitive Domain Attention: WNL Memory: WNL Problem Solving: Functional Executive Functions: WNL Visuospatial Skills: WNL Composite Severity Rating: WNL Clock Drawing Severity Rating: WNL Objective Formal/Standardized Tests [facility] Mental Status ([facility]) Results 28/30, within normal range of function Oral Motor/Speech Production Within Normal Limits Impression Patient is a pleasant 68 y/o male who was admitted to the ARU s/p brain surgery with placement of a shunt. Patient was given the [facility] with a score of 28/30 obtained. Patient does not require further ST services at this time. Speech Patient Assess Expression of Ideas/Wants: Expression (4) Understanding Verbal Content: Understands (4) Brief Interview-Mental Status: Yes Repetition of Three Words: Three (3) Temporal Orientation: Year: Correct (3) Temporal Orientation: Month: Accurate within 5 days(2) Temporal Orientation: Day: Correct (1) Recall : Wear to say "Sock": Yes, no cue required (2) Recall : Color: Yes, no cue required (2) Recall : Bed: Yes, no cue required (2) Memory/Recall Ability: Current season, That he or she is in a hsp/hsp unit Speech-Plan Patient/Family Goals Patient/Family Goals: Patient will discharge to his home where he lives with his SO. He will have support as needed for his daily needs. Treatment Plan Speech Therapy Treatment Plan: Discontinue ST Treatment Duration: Oct 22, 2019 Frequency: 1 time per week Estimated Hrs Per Day: .25 hour per day Rehab Potential: Good Barriers to Learning: None identified Pt/Family Agrees to Plan: Yes Safety Risks/Education Teaching Recipient: Patient Teaching Methods: Discussion Response to Teaching: Verbalize Understanding Education Topics Provided: Safety within his room and communication of wants/needs Time Speech Therapy Time In: 08:30 Speech Therapy Time Out: 08:45 Total Billed Time: 15 Billed Treatment Time 1, SPSNDCOMP BARTOLO Stephens Oct 22, 2019 08:55
[2019-10-22] MEDS ORDERED: NON-FORMULARY MEDICATION 1 EA EA (Omega-3/Dha/Epa/Fish Oil (Fish Oil 1,000 mg Softgel) 1 E PO SCH (09:00)
[2019-10-22] MEDS: TRIAMCINOLONE 0.1% CR (KENALOG) 15 GM TUBE TP SCH ×3 (09:00→20:58)
[2019-10-22] MEDS: SODIUM CHLORIDE 1 GM TABLET PO SCH ×2 (09:32→20:23)
[2019-10-22] MEDS: TAMSULOSIN 0.4 MG (FLOMAX) CAP PO SCH (09:32)
[2019-10-22] MEDS: polyethylene glycoL POWDER 17 GM (MIRALAX) PACK NG SCH ×2 (09:32→19:33)
[2019-10-22] MEDS: LOSARTAN 100 MG (COZAAR) TABLET PO SCH (09:33)
[2019-10-22] MEDS: amLODIPine 2.5MG (NORVASC) TAB PO SCH (09:33)
[2019-10-22] MEDS: MULTIVIT W/MINERALS TAB (THERAGRAN M) PO SCH (09:33)
[2019-10-22] MEDS: LEVETIRACETAM 500 MG (KEPPRA) TAB PO SCH ×2 (09:33→20:23)
[2019-10-22] MEDS: OMEGA 3 (FISH OIL) 1000 MG CAP PO SCH (09:33)
--- NOTE | 2019-10-22 09:57 | Physical Therapy Evaluation ---
PT Evaluation-General Medical Diagnosis Admission Date Oct 21, 2019 at 15:00 Medical Diagnosis: hydrocephaly; s/p shunt placement Onset Date: Oct 07, 2019 Therapy Diagnosis Therapy Diagnosis: impaired mobility, strength, endurance Precautions Precautions/Isolations: Seizure, Fall Prevention, Standard Precautions Referral Physician: Dena Acevse DO Reason for Referral: Evaluation/Treatment Medical History Pertinent Medical History: HTN Reviewed History: Yes Social History Home: Multilevel Current Living Status: Significant Other Entry Into Home: Stairs Without Railing PT Steps Into Home: 2 PT Steps Inside Home: 8 Prior Prior Level of Function SCALE: Activities may be completed with or without assistive devices. 2-Mvfkdifxgv-eiaqxmu completes the activity by him/herself with no assistance from a helper. 5-Set-up or Clean-up Assistance-helper sets up or cleans up; patient completes activity. Stirling assists only prior to or following the activity. 4-Supervision or Touching Assistance-helper provides verbal cues and/or touching/steadying and/or contact guard assistance as patient completes activity. Assistance may be provided throughout the activity or intermittently. 3-Partial/Moderate Assistance-helper does LESS THAN HALF the effort. [place] lifts, holds or supports trunk or limbs, but provides less than half the effort. 2-Substantial/Maximal Assistance-helper does MORE THAN HALF the effort. [place]ling lifts or holds trunk or limbs and provides more than half the effort. 3-Hzxtexhsu-gjjjrk does ALL the effort. Patient does none of the effort to complete the activity. Or, the assistance of 2 or more helpers is required for the patient to complete the activity. If activity was not attempted, code reason: 7-Patient Refused. 9-Not Applicable-not attempted and the patient did not perform the activity before the current illness, exacerbation or injury. 10-Not Attempted due to Environmental Limitations-(lack of equipment, weather restraints, etc.). 88-Not Attempted due to Medical Conditions or Safety Concerns. Bed Mobility: 6 Transfers (B,C,W/C): 6 Gait: 6 Stairs: 6 Indoor Mobility (Ambulation): Independent Stairs: Independent PT Evaluation-Current Subjective Patient in recliner pre tx, agrees to PT, has no complaints of pain. Pt/Family Goals to be independent at home Objective Patient Orientation: Person, Place, Situation Attachments: Lomeli Catheter ROM/Strength ROM Lower Extremities WNL Strength Lower Extremities 5/5 gross BLE except for hip flexion which is 4/5 bilaterally Sensory Vision: Wears Glasses Hearing: Functional Hand Dominance: Right Sensation Right Lower Extremit: Intact Sensation Left Lower Extremity: Intact Transfers Roll Left to Right (QC): 6 Sit to Lying (QC): 6 Lying to Sitting/Side of Bed(Q: 6 Sit to Stand (QC): 4 Chair/Ipn-ql-Gjvyr Xfer(QC): 4 Toilet Transfer (QC): 4 Car Transfer (QC): 4 Patient performs bed mobility with independence, supine <-> sit with independence, sit <-> stand SBA, transfers SBA, car transfer SBA. Patient often needs cues for hand placement when sitting or standing. Gait Does the Patient Walk?: Yes Mode of Locomotion: Walk Anticipated Mode of Locomotion: Walk Walk 10 feet (QC): 4 Walk 50 ft with 2 Turns(QC): 4 Walk 150 ft (QC): 4 Walking 10ft/uneven surface-QC: 4 Distance: 250' Gait Assistive Device: FWW Comments/Gait Description Patient can ambulate 250' with a rolling walker with SBA (including 50' with at least 2 turns of 90 degrees and 10' over an uneven surface). Patient ambulates slow but steady. Wheelchair Training Does the Pt Use a Wheelchair?: No Wheel 50 ft with 2 turns (QC): 9 Wheel 150 ft (QC): 9 Stairs #of Steps: 4 1 Step (curb) (QC): 4 4 Steps (QC): 4 12 Steps (QC): 88 Patient can go up and down 4 steps using 2 handrails with SBA. Cues for foot placement and safety. Balance Sitting Static: Normal Sitting Dynamic: Normal Standing Static: Normal Standing Dynamic: Good Picking up an Object (QC): 88 Treatment Parallel bars exercises x15 (mini-squats, hip abd, marching, heel raises), LAQ alternating for 5 min, NuStep level 5 for 15 min. Assessment/Needs Patient has impaired mobility, strength, endurance. Often needs cues for safety when standing or sitting. Rehab Potential: Fair PT Short Term Goals Short Term Goals Time Frame: Oct 29, 2019 Roll Left & Right: 6 Sit to lyin Lying to sitting on side of be: 6 Sit to stand: 5 Chair/oyp-qo-quzml transfer: 5 Walk 10 feet: 5 Walk 50 feet with two turns: 5 Walk 150 feet: 5 PT Jail Goals Jail Goals PT Jail Goals Time Frame: Nov 12, 2019 Roll Left & Right (QC): 6 Sit to Lying (QC): 6 Lying-Sitting on Side/Bed(QC): 6 Sit to Stand (QC): 6 Chair/Rgq-zi-Evrax Xfer(QC): 6 Toilet Transfer (QC): 6 Car Transfer (QC): 6 Does the Patient Walk: Yes Walk 10 feet (QC): 6 Walk 50ft with 2 Turns (QC): 6 Walk 150 ft (QC): 6 Walking 10ft on Uneven Surface: 6 1 Step (curb) (QC): 6 4 Steps (QC): 6 12 Steps (QC): 6 Picking up an Object (QC): 88 Wheel 50 feet with 2 turns (QC: 9 Wheel 150 feet: 9 PT Plan Problem List Problem List: Activity Tolerance, Functional Strength, Safety, Balance, Gait, Transfer Treatment/Plan Treatment Plan: Continue Plan of Care Treatment Plan: Education, Functional Activity Tristan, Functional Strength, Group Therapy, Gait, Safety, Therapeutic Exercise, Transfers Treatment Duration: Nov 12, 2019 Frequency: At least 5 of 7 days/Wk (IRF) Estimated Hrs Per Day: 1.5 hours per day Patient and/or Family Agrees t: Yes Safety Risks/Education Patient Education: Gait Training, Transfer Techniques, Steps, Correct Positioning, Safety Issues Teaching Recipient: Patient Teaching Methods: Demonstration, Discussion Response to Teaching: Reinforcement Needed Discharge Recommendations Plan Patient will perform bed mobility and transfer training, balance and endurance training, functional strengthening, stair training, gait training, and education, to improve functional mobility and independence at home. Therapy Discharge Recommendati: Home & Family Time/GCodes Time In: 0900 Time Out: 1000 Total Billed Treatment Time: 60 Total Billed Treatment 1 visit EVM 30' EX 30' CLAUDE OLIVO PT Oct 22, 2019 09:57
--- NOTE | 2019-10-22 11:57 | Occupational Ther Daily Note ---
OT Current Status-Daily Note Subjective Pt sitting in chair, agrees to therapy. ADL-Treatment Therapy Code Descriptions/Definitions Functional [place] Measure: 0=Not Assessed/NA 4=Minimal Assistance 1=Total Assistance 5=Supervision or Setup 2=Maximal Assistance 6=Modified [place] 3=Moderate Assistance 7=Complete IndependenceSCALE: Activities may be completed with or without assistive devices. 8-Mzlxvloswx-aaforyc completes the activity by him/herself with no assistance from a helper. 5-Set-up or Clean-up Assistance-helper sets up or cleans up; patient completes activity. [place] assists only prior to or following the activity. 4-Supervision or Touching Assistance-helper provides verbal cues and/or touching/steadying and/or contact guard assistance as patient completes activity. Assistance may be provided throughout the activity or intermittently. 3-Partial/Moderate Assistance-helper does LESS THAN HALF the effort. [place] lifts, holds or supports trunk or limbs, but provides less than half the effort. 2-Substantial/Maximal Assistance-helper does MORE THAN HALF the effort. [place] lifts or holds trunk or limbs and provides more than half the effort. 5-Fpxssjbut-zrytkr does ALL the effort. Patient does none of the effort to c omplete the activity. Or, the assistance of 2 or more helpers is required for the patient to complete the activity. If activity was not attempted, code reason: 7-Patient Refused. 9-Not Applicable-not attempted and the patient did not perform the activity before the current illness, exacerbation or injury. 10-Not Attempted due to Environmental Limitations-(lack of equipment, weather restraints, etc.). 88-Not Attempted due to Medical Conditions or Safety Concerns. Oral Hygiene (QC): 5 (Pt reports completing oral care with set up prior to therapy) Shower/Bathe Self (QC): 4 (Pt initially stated he would like to shower, but then requested to complete sponge bath. Pt able to wash/dry all areas. CGA for balance during standing to wash buttocks.) Upper Body Dressing (QC): 5 (Pt doffed shirt without assist. Donned pullover shirt with set up.) Lower Body Dressing (QC): 3 (Pt required min assist to thread catheter through pants. Stood with CGA for balance during pant hike. ) On/Off Footwear: 5 (Pt doffed/donned socks with set up) Toileting Hygiene (QC): 4 (Pt able to complete toileting hygiene and clothing management with CGA) Toilet Transfer (QC): 4 (CGA for transfer to toilet using grab bars for safety) Education OT Patient Education: Rehab process Teaching Recipient: Patient Teaching Methods: Discussion Response to Teaching: Verbalize Understanding OT Shelter Goals Shelter Goals Time Frame: Nov 04, 2019 Eating (QC): 6 Oral Hygiene (QC): 6 Toileting Hygiene (QC): 6 Shower/Bathe Self (QC): 6 Upper Body Dressing (QC): 6 Lower Body Dressing (QC): 6 On/Off Footwear (QC): 6 Additional Goals: 1-Demonstrate ADL Tasks, 2-Verbalize Understanding, 3- ImproveStrength/Tristan 1=Demonstrate adherence to instructed precautions during ADL tasks. 2=Patient will verbalize/demonstrate understanding of assistive devic es/modifications for ADL. 3=Patient will improve strength/tolerance for activity to enable patient to perform ADL's. OT Education/Plan Discharge Recommendations Plan/Recommendations: Continue POC Treatment Plan/Plan of Care Patient would benefit from OT for education, treatment and training to promote independence in ADL's, mobility, safety and/or upper extremity function for ADL's. Plan of Care: ADL Retraining, Caregiver Training, Concurrent Therapy, Functional Mobility, Group Exercise/Act as Ind, UE Funct Exercise/Act Treatment Duration: Nov 04, 2019 Frequency: At least 5 of 7 days/Wk (IRF) Estimated Hrs Per Day: 1.5 hours per day Agreement: Yes Rehab Potential: Fair Time/GCodes Start Time: 10:15 Stop Time: 11:15 Total Time Billed (hr/min): 60 Billed Treatment Time 1 visit, ADLx4(60minutes) RK GROVES OT Oct 22, 2019 11:57
--- NOTE | 2019-10-22 13:56 | Occupational Ther Daily Note ---
OT Current Status-Daily Note Subjective Pt sitting in chair, agrees to therapy. Denies pain at this time. ADL-Treatment Therapy Code Descriptions/Definitions Functional [place] Measure: 0=Not Assessed/NA 4=Minimal Assistance 1=Total Assistance 5=Supervision or Setup 2=Maximal Assistance 6=Modified [place] 3=Moderate Assistance 7=Complete IndependenceSCALE: Activities may be completed with or without assistive devices. 4-Fgsvvwtqko-qevsbbq completes the activity by him/herself with no assistance from a helper. 5-Set-up or Clean-up Assistance-helper sets up or cleans up; patient completes activity. [place] assists only prior to or following the activity. 4-Supervision or Touching Assistance-helper provides verbal cues and/or [place]/steadying and/or contact guard assistance as patient completes activity. Assistance may be provided throughout the activity or intermittently. 3-Partial/Moderate Assistance-helper does LESS THAN HALF the effort. [place] lifts, holds or supports trunk or limbs, but provides less than half the effort. 2-Substantial/Maximal Assistance-helper does MORE THAN HALF the effort. [place] lifts or holds trunk or limbs and provides more than half the effort. 4-Fsjliktvh-zlwcmm does ALL the effort. Patient does none of the effort to complete the activity. Or, the assistance of 2 or more helpers is required for the patient to complete the activity. If activity was not attempted, code reason: 7-Patient Refused. 9-Not Applicable-not attempted and the patient did not perform the activity before the current illness, exacerbation or injury. 10-Not Attempted due to Environmental Limitations-(lack of equipment, weather restraints, etc.). 88-Not Attempted due to Medical Conditions or Safety Concerns. Other Treatment Pt sit to stand with supervision. Gait to therapy gym with FWW, steady pace. Seated rest break upon arrival to gym. Pt completed arm arc activity with bilateral UE while standing to promote increased activity tolerance and standing balance. Pt completed task without LOB. One seated rest breaks. Pt performed ham bag toss using bilateral UE to increase UE activity, dynamic standing balance and activity tolerance. Pt has good participation in task and required SBA only for balance. Pt returned to room, sitting in chair with needs met and brother present after session. OT Model Maker [employer] Goals Model Maker [place] Goals Time Frame: Nov 04, 2019 Eating (QC): 6 Oral Hygiene (QC): 6 Toileting Hygiene (QC): 6 Shower/Bathe Self (QC): 6 Upper Body Dressing (QC): 6 Lower Body Dressing (QC): 6 On/Off Footwear (QC): 6 Additional Goals: 1-Demonstrate ADL Tasks, 2-Verbalize Understanding, 3- ImproveStrength/Tristan 1=Demonstrate adherence to instructed precautions during ADL tasks. 2=Patient will verbalize/demonstrate understanding of assistive device s/modifications for ADL. 3=Patient will improve strength/tolerance for activity to enable patient to perform ADL's. OT Education/Plan Discharge Recommendations Plan/Recommendations: Continue POC Treatment Plan/Plan of Care Patient would benefit from OT for education, treatment and training to promote independence in ADL's, mobility, safety and/or upper extremity function for ADL's. Plan of Care: ADL Retraining, Caregiver Training, Concurrent Therapy, Functional Mobility, Group Exercise/Act as Ind, UE Funct Exercise/Act Treatment Duration: Nov 04, 2019 Frequency: At least 5 of 7 days/Wk (IRF) Estimated Hrs Per Day: 1.5 hours per day Agreement: Yes Rehab Potential: Fair Time/GCodes Start Time: 13:00 Stop Time: 13:30 Total Time Billed (hr/min): 30 Billed Treatment Time 1 visit, FAx2(30minutes) RK GROVES OT Oct 22, 2019 13:56
--- NOTE | 2019-10-22 14:32 | NUR ---
RD ASSESSMENT PMHx: HTN; BPH; CA(melanoma) PT INTERACTION: Pt was awake and pleasent during nutrition assessment. Pt states current appetite is "pretty bad" and it has been this way for several weeks. Note PO intake 75% x1meal, per chart review. Pt states following a regular diet at home and has no issues with chewing/swallowing food. Pt states some recent issues with nausea and vomiting. Pt states no recent issues with constipation or diarrhea, and that his last BM was 8/4. Note pt currently on bowel regimen of colace BID; senna BID; and miralax BID, per chart review. Pt states recent wt loss, but unsure of amount/timeframe. Note unable to determine recent wt hx, per chart review. ABNORMAL NUTRITION-RELATED LAB VALUES LOW: Na 134; Ca 8.3; Pro 5.4 HIGH: Est. kcal needs: 1950 kcal | 25 kcal/kg Est. Pro needs: 62 g Pro | 0.8 g Pro/kg PES STATEMENT: Given current PO intake, no nutrition diagnosis at this time (NO-1.1) INTERVENTION: Continue with current diet order of Regular diet. Will continue to follow and reassess as pt needs, intake, and status change. MONITOR/EVALUATE: PO Intake; Plan of Care; Hydration Status; Weight Status; Lab Values Bartolo Wheeler, MS, RD, LD
--- NOTE | 2019-10-22 14:58 | Physical Therapy Daily Note ---
PT Daily Note-Current Subjective Patient in recliner pre tx, agrees to PT, no complaints of pain. Appearance Patient in recliner post tx with nurse call, phone, tray, all needs met. Mental Status Patient Orientation: Person, Place, Situation Transfers SCALE: Activities may be completed with or without assistive devices. 9-Qzrdhnjohh-tipbgyg completes the activity by him/herself with no assistance from a helper. 5-Set-up or Clean-up Assistance-helper sets up or cleans up; patient completes activity. [place] assists only prior to or following the activity. 4-Supervision or Touching Assistance-helper provides verbal cues and/or touchin g/steadying and/or contact guard assistance as patient completes activity. Assistance may be provided throughout the activity or intermittently. 3-Partial/Moderate Assistance-helper does LESS THAN HALF the effort. [place] lifts, holds or supports trunk or limbs, but provides less than half the effort. 2-Substantial/Maximal Assistance-helper does MORE THAN HALF the effort. [place] lifts or holds trunk or limbs and provides more than half the effort. 2-Aotfraluo-gpzdvp does ALL the effort. Patient does none of the effort to complete the activity. Or, the assistance of 2 or more helpers is required for the patient to complete the activity. If activity was not attempted, code reason: 7-Patient Refused. 9-Not Applicable-not attempted and the patient did not perform the activity before the current illness, exacerbation or injury. 10-Not Attempted due to Environmental Limitations-(lack of equipment, weather restraints, etc.). 88-Not Attempted due to Medical Conditions or Safety Concerns. Sit to Stand (QC): 5 Chair/Pio-bx-Dbrag Xfer(QC): 4 Gait Training Distance: 300', 150' Walk 10 feet (QC): 4 Walk 50 ft with 2 Turns(QC): 4 Walk 150 ft (QC): 4 Gait Persons Needed: 1 Gait Assistive Device: FWW slow but steady ambulation, slumped posture Exercises NuStep Minutes: 15 NuStep Workload: 5 Treatments transfers, ambulation, functional strengthening Assessment Current Status: Fair Progress improving endurance PT Short Term Goals Short Term Goals Time Frame: Oct 29, 2019 Roll Left & Right: 6 Sit to lyin Lying to sitting on side of be: 6 Sit to stand: 5 Chair/nfx-br-oeive transfer: 5 Walk 10 feet: 5 Walk 50 feet with two turns: 5 Walk 150 feet: 5 PT Snf Goals Security Shift Supervisor Goals PT Snf Goals Time Frame: Nov 12, 2019 Roll Left & Right (QC): 6 Sit to Lying (QC): 6 Lying-Sitting on Side/Bed(QC): 6 Sit to Stand (QC): 6 Chair/Aml-an-Ktayw Xfer(QC): 6 Toilet Transfer (QC): 6 Car Transfer (QC): 6 Does the Patient Walk: Yes Walk 10 feet (QC): 6 Walk 50ft with 2 Turns (QC): 6 Walk 150 ft (QC): 6 Walking 10ft on Uneven Surface: 6 1 Step (curb) (QC): 6 4 Steps (QC): 6 12 Steps (QC): 6 Picking up an Object (QC): 88 Wheel 50 feet with 2 turns (QC: 9 Wheel 150 feet: 9 PT Plan Problem List Problem List: Activity Tolerance, Functional Strength, Safety, Balance, Gait, Transfer, Bed Mobility, ROM Treatment/Plan Treatment Plan: Continue Plan of Care Treatment Plan: Education, Functional Activity Tr[place], Functional Strength, Group Therapy, Gait, Safety, Therapeutic Exercise, Transfers Treatment Duration: Nov 12, 2019 Frequency: At least 5 of 7 days/Wk (IRF) Estimated Hrs Per Day: 1.5 hours per day Patient and/or Family Agrees t: Yes Safety Risks/Education Patient Education: Gait Training, Transfer Techniques, Correct Positioning, Safety Issues Teaching Recipient: Patient Teaching Methods: Demonstration, Discussion Response to Teaching: Reinforcement Needed Time/GCodes Time In: 1400 Time Out: 1430 Total Billed Treatment Time: 30 Total Billed Treatment 1 visit EX 15' GT 15' CLAUDE OLIVO PT Oct 22, 2019 14:58
[2019-10-22 18:59] VITALS: BP 116/70
[2019-10-22] MEDS: MELATONIN 10 MG TABLET PO SCH (20:23)
--- NOTE | 2019-10-22 21:05 | Individualized Plan of Care ---
Individualized Plan of Care Rehab Nursing IPOC Order Admission Date Oct 21, 2019 at 15:00 Current Orders Orders Admission Order(Inpt,Obs,Sdc) (10/21/19 13:07) Vital Signs: Per Unit Policy ( 08,16,00 (10/21/19 13:07) Tyler Rosenthal 09,21 (10/21/19 13:07) Sequential Compression Device Q4H (10/21/19 13:07) Mail Examiner-Inpt Rehab Con (10/21/19 13:07) Rehab Nursing Orders-Ipoc (10/21/19 13:07) Physical Therapy Rehab Orders (10/21/19 13:07) Occupational Therapy Rehab Ord (10/21/19 13:07) Speech Therapy Rehab Orders (10/21/19 13:07) Cbc With Automated Diff (10/22/19 06:00) Comprehensive Metabolic Panel (10/22/19 06:00) General/Regular (10/21/19 Lunch) Intake & Output 06,14,22 (10/21/19 13:07) Precautions (Aru) (10/21/19 13:07) Weekly Weight WEEK (10/21/19 13:07) Rehab-Intensity Of Therapy (10/21/19 13:07) Initiate Admission Nursing Pro .admission (10/21/19 13:07) Acetaminophen Tablet (Tylenol Tablet) (10/21/19 13:15) Alprazolam Tablet (Xanax Tablet) (10/21/19 13:15) Calcium Carbonate Chew Tablet (Antacid C (10/21/19 13:15) Diphenhydramine Tablet (Benadryl Tablet) (10/21/19 13:15) Docusate Sodium Capsule (Colace Capsule) (10/21/19 21:00) Docusate Sodium Capsule (Colace Capsule) (10/21/19 13:15) Bisacodyl Suppository (Dulcolax Supposit (10/21/19 13:15) Lactulose Oral Solution (Enulose Oral So (10/21/19 13:15) Na Phos/Na Biphos Enema (Fleet Enema South (10/21/19 13:15) Guaifenesin/Codeine Syrup (Robitussin Ac (10/21/19 13:15) Loperamide Tablet (Imodium Tablet) (10/21/19 13:15) Melatonin Tablet (Melatonin Tablet) (10/21/19 13:15) Polyethylene Glycol Powder Pkt (Miralax (10/21/19 21:00) Ondansetron Oral Dissolve Tab (Zofran (10/21/19 13:15) Senna S Tablet (Senokot S Tablet) (10/21/19 21:00) Initiate Admission Nursing Pro .admission (10/21/19 13:07) Amlodipine Tablet (Norvasc Tablet) (10/22/19 09:00) Atorvastatin Tablet (Lipitor) (10/22/19 09:00) Losartan Tablet (Cozaar Tablet) (10/22/19 09:00) Therapeutic Multivitamin Tab (Vitamins, (10/22/19 09:00) Oxycodone Immediate Rel Tablet (Oxyir Ta (10/21/19 18:15) Polyethylene Glycol Powder Pkt (Miralax (10/21/19 21:00) Sodium Chloride Tablet (Sodium Chloride (10/21/19 21:00) Tamsulosin Capsule (Flomax Capsule) (10/22/19 09:00) Triamcinolone 0.1% Cream 15 Gm (Kenalog (10/21/19 21:00) (Nf) Acetaminophen (Tylenol) (10/21/19 18:15) (Nf) Heparin Sodium,Porcine/Pf (Heparin (10/21/19 18:15) (Nf) Lactulose (10/21/19 21:00) (Nf) Levetiracetam (Keppra) (10/21/19 21:00) (Nf) Melatonin (10/21/19 21:00) (Nf) Ensign-3/Dha/Epa/Fish Oil (Fish Oil (10/22/19 09:00) Acetaminophen Tablet/Caplet (Tylenol T (10/21/19 18:15) Melatonin Tablet (Melatonin) (10/21/19 21:00) Lactulose Oral Solution (Enulose Oral So (10/21/19 21:00) Levetiracetam Tablet (Keppra Tablet) (10/21/19 21:00) Ensign 3 Capsule (Fish Oil Capsule) (10/22/19 09:00) Heparin Injection (Heparin Injection) (10/21/19 18:15) Patient Visit (10/22/19 ) Speech Sound Lang Comp (10/22/19 ) Patient Visit (10/22/19 ) Pt Eval Moderate Complexity (10/22/19 ) Exercise Therap, Ea 15 Min (10/22/19 ) Gait Training, Ea 15 Min (10/22/19 ) Consult Physician (10/23/19 09:31) Patient Visit (10/23/19 ) Ex Neuromuscular, Ea 15 Min (10/23/19 ) Gait Training, Ea 15 Min (10/23/19 ) Exercise Therap, Ea 15 Min (10/23/19 ) Patient Visit (10/23/19 ) Exercise Therap, Ea 15 Min (10/23/19 ) Rehab Nursing Orders: Ongoing Assess. of Cognitive Status, Ongoing Assess. of Function Status, Bladder Management, Bladder Scan, Bladder Training, Bowel Management, Bowel Training, Disease Management & Educaiton, DVT Prophylaxis, Fall Prevention, Fluid/Electrolyte/Nutrition Mgmt, Infection Prevention, Medication Management & Education, Management of Risks & Complications, Management of Skin Intergrity, Nutrition Management, Pain Management, Patient/Family Support, Safety Management, Swallow Precautions Intensity of Therapy to be met Patient to be seen: Min.3h per day/5 of 7d PT IPOC Problem List: Activity Tolerance, Functional Strength, Safety, Balance, Gait, Transfer, Bed Mobility, ROM Treatment Plan: Continue Plan of Care Education, Functional Activity [place], Functional Strength, Group Therapy, Gait, Safety, Therapeutic Exercise, Transfers Treatment Duration: Nov 12, 2019 Frequency: At least 5 of 7 days/Wk (IRF) Estimated Hrs Per Day: 1.5 hours per day OT IPOC Problems: Decreased Activ Tolerance, Decreased UE Strength, Dependent Transfers, Impaired Funct Balance, Impaired I ADL's, Impaired Self-Care Skills OT Treatment, Training and Edu: Yes Plan of Care: ADL Retraining, Caregiver Training, Concurrent Therapy, Functional Mobility, Group Exercise/Act as Ind, UE Funct Exercise/Act Treatment Duration: Nov 04, 2019 Frequency: At least 5 of 7 days/Wk (IRF) Estimated Hrs Per Day: 1.[address] IPOC Speech Therapy Treatment Plan: Discontinue ST Treatment Duration: Oct 22, 2019 Frequency: 1 time per week Estimated Hrs Per Day: .25 hour per day Mail Examiner/Case Mgmt Mail Examiner/Case Managemen: Discharge Planning Dietitian/Refuse Driver Dietitian/Refuse Driver to monitor nutritional status and make changes and/or recommendations as needed and work with speech pathology on dietary upgrades as the occur. Physician IPOC Medical Issues being managed closely and that require the 24 hour availability of a physician: Recent admit to IRF then had rapid response for new onset seizure will be in need of close monitoring in case of decompensation Medical Issues: Bowel/Bladder Function, DVT Prophylaxis, Falls Precautions, Fluid/Electrolyte/Nutrition Balance, Infection Protection, Pain Management Brief Synthesis of Preadmission Screen, Post-Admission Evaluation, and Therapy Evaluations: PT OT will focus on regaining strength and focus on increasing ADL's along with safety awareness in order to return home to live Medical Prognosis: Good Anticipated Length of Stay: 5 days LAURA CHEN DO Oct 22, 2019 21:05
[2019-10-23 05:18] VITALS: BP 107/58
[2019-10-23] MEDS: SENNA W/DOCUSATE (SENOKOT S) TABLET PO SCH ×2 (08:10→19:39)
[2019-10-23] MEDS: LACTULOSE SYRUP 10GM/15ML (ENULOSE) 30ML UDC PO SCH ×3 (08:10→19:38)
[2019-10-23] MEDS: DOCUSATE SODIUM 100 MG (COLACE) CAP PO SCH ×2 (08:10→19:38)
[2019-10-23] MEDS: polyethylene glycoL POWDER 17 GM (MIRALAX) PACK PO SCH ×2 (08:10→19:39)
[2019-10-23] MEDS: TRIAMCINOLONE 0.1% CR (KENALOG) 15 GM TUBE TP SCH ×3 (08:11→19:39)
--- NOTE | 2019-10-23 08:21 | PM&R Progress Note ---
Subjective HPI/CC On Admission Date Seen by Provider: Oct 23, 2019 Time Seen by Provider: 09:45 Subjective/Events-last exam 10/23/19: Patient doing very well today wants to go home at the bedside Urology consult for Bladder issues and Urinary retention Still maintain with Lomeli Catheter Bowels are moving well Over all doing much better 10/22/19 Patient doing very well Slept well Labs are normal Needs systolic blood pressure kept less than 160 Sutures on his scalp are maintained Urology consultation for Urinary retention Review of Systems General: Fatigue, Malaise Neurological: Weakness Objective Exam Vital Signs Vital Signs Date Time Temp Pulse Resp B/P (MAP) Pulse Ox O2 Delivery O2 Flow Rate FiO2 10/23/19 18:00 36.2 80 16 114/72 (86) 96 Room Air Capillary Refill : Less Than 3 Seconds General Appearance: No Apparent Distress, WD/WN, Chronically ill, Thin HEENT: PERRL/EOMI, Normal ENT Inspection, Pharynx Normal Neck: Full Range of Motion, Normal Inspection, Non Tender, Supple, Carotid B ruit Respiratory: Chest Non Tender, Lungs Clear, Normal Breath Sounds, No Accessory Muscle Use, No Respiratory Distress Cardiovascular: Regular Rate, Rhythm, No Edema, No Gallop, No JVD, No Murmur, Normal Peripheral Pulses Gastrointestinal: Normal Bowel Sounds, No Organomegaly, No Pulsatile Mass, Non Tender, Soft Back: Normal Inspection, No CVA Tenderness, No Vertebral Tenderness Extremity: Normal Capillary Refill, Normal Inspection, Normal Range of Motion, Non Tender, No Calf Tenderness, No Pedal Edema Neurologic/Psychiatric: Alert, Oriented x3, No Motor/Sensory Deficits, Normal Mood/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 FIM Transfers Therapy Code Descriptions/Definitions Functional [place] Measure: 0=Not Assessed/NA 4=Minimal Assistance 1=Total Assistance 5=Supervision or Setup 2=Maximal Assistance 6=Modified [place] 3=Moderate Assistance 7=Complete IndependenceSCALE: Activities may be completed with or without assistive devices. 0-Kxiwfqegwc-nivxlhy completes the activity by him/herself with no assistance from a helper. 5-Set-up or Clean-up Assistance-helper sets up or cleans up; patient completes activity. [place] assists only prior to or following the activity. 4-Supervision or Touching Assistance-helper provides verbal cues and/or touching/steadying and/or contact guard assistance as patient completes activity. Assistance may be provided throughout the activity or intermittently. 3-Partial/Moderate Assistance-helper does LESS THAN HALF the effort. [place] lifts, holds or supports trunk or limbs, but provides less than half the effort. 2-Substantial/Maximal Assistance-helper does MORE THAN HALF the effort. [place] lifts or holds trunk or limbs and provides more than half the effort. 9-Wusuosfve-ufthgf does ALL the effort. Patient does none of the effort to complete the activity. Or, the assistance of 2 or more helpers is required for the patient to complete the activity. If activity was not attempted, code reason: 7-Patient Refused. 9-Not Applicable-not attempted and the patient did not perform the activity before the current illness, exacerbation or injury. 10-Not Attempted due to Environmental Limitations-(lack of equipment, weather restraints, etc.). 88-Not Attempted due to Medical Conditions or Safety Concerns. Roll Left to Right (QC): 6 Sit to Lying (QC): 6 Sit to Stand (QC): 5 Chair/Ktm-hl-Zywdr Xfer(QC): 4 Car Transfer (QC): 4 Gait Training Does the Patient Walk?: Yes Distance: 300', 150' Walk 10 feet (QC): 4 Walk 50 ft with 2 Turns(QC): 4 Walk 150 ft (QC): 4 Walking 10ft/uneven surface-QC: 4 Gait Persons Needed: 1 Gait Assistive Device: FWW Wheelchair Training Does the Pt Use a Wheelchair?: No Wheel 50 ft with 2 turns (QC): 9 Wheel 150 ft (QC): 9 Stair Training #of Steps: 4 1 Step (curb) (QC): 4 4 Steps (QC): 4 12 Steps (QC): 88 Balance Picking up an Object (QC): 88 ADL-Treatment Eating (QC): 5 (per pt, pt is IND with task. Per previous notes, pt requires s/u for activity) Oral Hygiene (QC): 5 (Pt reports completing oral care with set up prior to therapy) Shower/Bathe Self (QC): 4 (Pt initially stated he would like to shower, but then requested to complete sponge bath. Pt able to wash/dry all areas. CGA for balance during standing to wash buttocks.) Upper Body Dressing (QC): 5 (Pt doffed shirt without assist. Donned pullover shirt with set up.) Lower Body Dressing (QC): 3 (Pt required min assist to thread catheter through pants. Stood with CGA for balance during pant hike. ) On/Off Footwear (QC): 5 (Pt doffed/donned socks with set up) Toileting Hygiene (QC): 4 (Pt able to complete toileting hygiene and clothing management with CGA) Toilet Transfer (QC): 4 (CGA for transfer to toilet using grab bars for safety) Assessment/Plan Assessment and Plan Assess & Plan/Chief Complaint Assessment: Low pressure hydrocephalus Seizure new onset Monday in IRF prompting return to [facility] Former alcohol user HTN BPH Plan: Monitor BP Check labs in am Monitor MACROECONOMICS PROFESSOR shunt IRF protocol 10/22/19: Urology consultation Monitor blood pressure doing well Monitor for any side effects from MACROECONOMICS PROFESSOR shunt 10/23/19; Continue aggressive treatment Urology consultation for Urinary retention Discuss disposition in team conference Maintain [place] (1) Hydrocephalus (2) Seizure (3) History of alcohol use (4) Thin build (5) Frailty LAURA CHEN DO Oct 23, 2019 08:21
[2019-10-23] MEDS: LEVETIRACETAM 500 MG (KEPPRA) TAB PO SCH ×2 (09:01→20:08)
[2019-10-23] MEDS: TAMSULOSIN 0.4 MG (FLOMAX) CAP PO SCH (09:01)
[2019-10-23] MEDS: SODIUM CHLORIDE 1 GM TABLET PO SCH ×2 (09:01→20:28)
[2019-10-23] MEDS: LOSARTAN 100 MG (COZAAR) TABLET PO SCH (09:01)
[2019-10-23] MEDS: MULTIVIT W/MINERALS TAB (THERAGRAN M) PO SCH (09:01)
[2019-10-23] MEDS: amLODIPine 2.5MG (NORVASC) TAB PO SCH (09:01)
[2019-10-23] MEDS: polyethylene glycoL POWDER 17 GM (MIRALAX) PACK NG SCH ×2 (09:01→19:38)
[2019-10-23] MEDS: OMEGA 3 (FISH OIL) 1000 MG CAP PO SCH (09:01)
--- NOTE | 2019-10-23 09:55 | Physical Therapy Daily Note ---
PT Daily Note-Current Subjective Patient in recliner pre tx, agrees to PT, no complaints of pain. Appearance Patient in recliner post tx with nurse call, phone, tray, all needs met. Mental Status Patient Orientation: Person, Place, Situation Attachments: Lomeli Catheter Transfers SCALE: Activities may be completed with or without assistive devices. 7-Nsdkudkwam-mivxibv completes the activity by him/herself with no assistance from a helper. 5-Set-up or Clean-up Assistance-helper sets up or cleans up; patient completes activity. [place] assists only prior to or following the activity. 4-Supervision or Touching Assistance-helper provides verbal cues and/or touching/steadying and/or contact guard assistance as patient completes activity. Assistance may be provided throughout the activity or intermittently. 3-Partial/Moderate Assistance-helper does LESS THAN HALF the effort. [place] lifts, holds or supports trunk or limbs, but provides less than half the effort. 2-Substantial/Maximal Assistance-helper does MORE THAN HALF the effort. [place] lifts or holds trunk or limbs and provides more than half the effort. 8-Zcoaybdsc-bxczei does ALL the effort. Patient does none of the effort to complete the activity. Or, the assistance of 2 or more helpers is required for the patient to complete the activity. If activity was not attempted, code reason: 7-Patient Refused. 9-Not Applicable-not attempted and the patient did not perform the activity before the current illness, exacerbation or injury. 10-Not Attempted due to Environmental Limitations-(lack of equipment, weather restraints, etc.). 88-Not Attempted due to Medical Conditions or Safety Concerns. Sit to Stand (QC): 4 Chair/Cgx-fp-Typqy Xfer(QC): 4 Gait Training Distance: 300', 150' Walk 10 feet (QC): 4 Walk 50 ft with 2 Turns(QC): 4 Walk 150 ft (QC): 4 Gait Persons Needed: 1 Gait Assistive Device: FWW SBA, slow but steady ambulation, however improving in speed Exercises Standing: Heel/toe raises, Mini squats, Step-ups Standing Reps: 20 balance training stepping onto and off airex and performing tandem stance each way for 30 sec NuStep Minutes: 15 NuStep Workload: 5 Treatments transfers, ambulation, functional strengthening, balance training Assessment Current Status: Fair Progress improving general mobility and strength PT Short Term Goals Short Term Goals Time Frame: Oct 29, 2019 Roll Left & Right: 6 Sit to lyin Lying to sitting on side of be: 6 Sit to stand: 5 Chair/dif-rr-wbmmy transfer: 5 Walk 10 feet: 5 Walk 50 feet with two turns: 5 Walk 150 feet: 5 PT 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 Middle School 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 Teacher Goals Time Frame: Nov 12, 2019 Roll Left & Right (QC): 6 Sit to Lying (QC): 6 Lying-Sitting on Side/Bed(QC): 6 Sit to Stand (QC): 6 Chair/Rqz-os-Ydapl Xfer(QC): 6 Toilet Transfer (QC): 6 Car Transfer (QC): 6 Does the Patient Walk: Yes Walk 10 feet (QC): 6 Walk 50ft with 2 Turns (QC): 6 Walk 150 ft (QC): 6 Walking 10ft on Uneven Surface: 6 1 Step (curb) (QC): 6 4 Steps (QC): 6 12 Steps (QC): 6 Picking up an Object (QC): 88 Wheel 50 feet with 2 turns (QC: 9 Wheel 150 feet: 9 PT Plan Problem List Problem List: Activity Tolerance, Functional Strength, Safety, Balance, Gait, Transfer Treatment/Plan Treatment Plan: Continue Plan of Care Treatment Plan: Education, Functional Activity Tristan, Functional Strength, Group Therapy, Gait, Safety, Therapeutic Exercise, Transfers Treatment Duration: Nov 12, 2019 Frequency: At least 5 of 7 days/Wk (IRF) Estimated Hrs Per Day: 1.5 hours per day Patient and/or Family Agrees t: Yes Safety Risks/Education Patient Education: Gait Training, Transfer Techniques, Correct Positioning, Safety Issues Teaching Recipient: Patient Teaching Methods: Demonstration, Discussion Response to Teaching: Reinforcement Needed Time/GCodes Time In: 0900 Time Out: 1000 Total Billed Treatment Time: 60 Total Billed Treatment 1 visit NM 15' EX 30' GT 15' CLAUDE OLIVO PT Oct 23, 2019 09:54
--- NOTE | 2019-10-23 11:25 | Occupational Ther Daily Note ---
OT Current Status-Daily Note Subjective Pt seen in recliner with no pain. Pt states readiness for home d/c. Fiance present through session. Mental Status/Objective Patient Orientation: Normal For Age Attachments: Lomeli Catheter ADL-Treatment Therapy Code Descriptions/Definitions Functional [place] Measure: 0=Not Assessed/NA 4=Minimal Assistance 1=Total Assistance 5=Supervision or Setup 2=Maximal Assistance 6=Modified [place] 3=Moderate Assistance 7=Complete IndependenceSCALE: Activities may be completed with or without assistive devices. 3-Ocrdrvchhu-focngps completes the activity by him/herself with no assistance from a helper. 5-Set-up or Clean-up Assistance-helper sets up or cleans up; patient completes activity. [place] assists only prior to or following the activity. 4-Supervision or Touching Assistance-helper provides verbal cues and/or touching/steadying and/or contact guard assistance as patient completes activity. Assistance may be provided throughout the activity or intermittently. 3-Partial/Moderate Assistance-helper does LESS THAN HALF the effort. [place] lifts, holds or supports trunk or limbs, but provides less than half the effort. 2-Substantial/Maximal Assistance-helper does MORE THAN HALF the effort. [place] lifts or holds trunk or limbs and provides more than half the effort. 1-Ujwffhwzd-flvvag does ALL the effort. Patient does none of the effort to complete the activity. Or, the assistance of 2 or more helpers is required for the patient to complete the activity. If activity was not attempted, code reason: 7-Patient Refused. 9-Not Applicable-not attempted and the patient did not perform the activity before the current illness, exacerbation or injury. 10-Not Attempted due to Environmental Limitations-(lack of equipment, weather restraints, etc.). 88-Not Attempted due to Medical Conditions or Safety Concerns. Eating (QC): 6 Oral Hygiene (QC): 6 Bathing Location: L Arm, R Arm, L Upper Leg, R Upper Leg, L Lower Leg (including foot), R Lower Leg (including foot), Chest, Abdomen, Buttocks, Perineal Area Shower/Bathe Self (QC): 4 (s/u for shower, SBA during tasks, cues for minimal dampening/ washing of hair and patting dry and abdominal precautions. Pt completes with safety and IND.) Upper Body Dressing (QC): 6 Lower Body Dressing (QC): 5 (s/u for catheter threading.) On/Off Footwear: 6 Toileting Hygiene (QC): 6 (IND) Toilet Transfer (QC): 4 (completes with SUP.) Other Treatment Pt seen in recliner. All sit to stands with SBA. Pt completes showering after prep and precaution education for abdomen and head. Pt completes dressing IND. Pt ambulates to kitchen area, completes safe reaching/ microwaving task with minimal cues. Completes again with safety without cues. Pt rests, ambulates to gym with walker with SBA. Pt completes 5 min moderate resistance arm bike ex with SBA, rests, and completes 2 min max resistance for balance/ functional activity tolerance improvement. Pt returns to room with all needs met, call light in reach. Education OT Patient Education: Correct positioning, Energy conservation, Exercise program, Home exercise program, Modified ADL techniques, Progress toward Goal/Update tx plan, Purpose of tx/functional activities, Reviewed precautions, Safety issues, Transfer techniques Teaching Recipient: Patient Teaching Methods: Demonstration, Discussion Response to Teaching: Verbalize Understanding, Return Demonstration OT Cage Shift Manager Goals Fdc Goals Time Frame: Nov 04, 2019 Eating (QC): 6 Oral Hygiene (QC): 6 Toileting Hygiene (QC): 6 Shower/Bathe Self (QC): 6 Upper Body Dressing (QC): 6 Lower Body Dressing (QC): 6 On/Off Footwear (QC): 6 Additional Goals: 1-Demonstrate ADL Tasks, 2-Verbalize Understanding, 3-ImproveStrength/Tristan 1=Demonstrate adherence to instructed precautions during ADL tasks. 2=Patient will verbalize/demonstrate understanding of assistive devices/modifications for ADL. 3=Patient will improve strength/tolerance for activity to enable patient to per form ADL's. OT Education/Plan Problem List/Assessment Assessment: Decreased Activ Tolerance, Impaired I ADL's, Impaired Self-Care Skills Discharge Recommendations Plan/Recommendations: Continue POC Therapy Discharge Recommendati: Home & Family Treatment Plan/Plan of Care Treatment,Training & Education: Yes Patient would benefit from OT for education, treatment and training to promote independence in ADL's, mobility, safety and/or upper extremity function for ADL's. Plan of Care: ADL Retraining, Caregiver Training, Concurrent Therapy, Functional Mobility, Group Exercise/Act as Ind, UE Funct Exercise/Act Treatment Duration: Nov 04, 2019 Frequency: At least 5 of 7 days/Wk (IRF) Estimated Hrs Per Day: 1.5 hours per day Agreement: Yes Rehab Potential: Fair Time/GCodes Start Time: 10:30 Stop Time: 11:30 Total Time Billed (hr/min): 60 Billed Treatment Time 1030-: 1, ADL 3 (45), EX (15) SHALINI PURI OTR Oct 23, 2019 11:25
--- NOTE | 2019-10-23 14:36 | Occupational Ther Daily Note ---
OT Current Status-Daily Note Subjective Pt up in reclining chair when OT entered room. No c/o pain. Pt agreeable to therapy. Mental Status/Objective Patient Orientation: Person, Place, Time, Situation Attachments: Lomeli Catheter ADL-Treatment Therapy Code Descriptions/Definitions Functional [place] Measure: 0=Not Assessed/NA 4=Minimal Assistance 1=Total Assistance 5=Supervision or Setup 2=Maximal Assistance 6=Modified [place] 3=Moderate Assistance 7=Complete IndependenceSCALE: Activities may be completed with or without assistive devices. 5-Wgesqmqbss-wawgyfd completes the activity by him/herself with no assistance from a helper. 5-Set-up or Clean-up Assistance-helper sets up or cleans up; patient completes activity. [place] assists only prior to or following the activity. 4-Supervision or Touching Assistance-helper provides verbal cues and/or touching/steadying and/or contact guard assistance as patient completes activity . Assistance may be provided throughout the activity or intermittently. 3-Partial/Moderate Assistance-helper does LESS THAN HALF the effort. [place] lifts, holds or supports trunk or limbs, but provides less than half the effort. 2-Substantial/Maximal Assistance-helper does MORE THAN HALF the effort. [place] lifts or holds trunk or limbs and provides more than half the effort. 0-Lzvpsdcum-zmfpyi does ALL the effort. Patient does none of the effort to complete the activity. Or, the assistance of 2 or more helpers is required for the patient to complete the activity. If activity was not attempted, code reason: 7-Patient Refused. 9-Not Applicable-not attempted and the patient did not perform the activity before the current illness, exacerbation or injury. 10-Not Attempted due to Environmental Limitations-(lack of equipment, weather restraints, etc.). 88-Not Attempted due to Medical Conditions or Safety Concerns. Oral Hygiene (QC): 5 On/Off Footwear: 4 Pt. requested to brush teeth with OT. He independently donned his tennis shoes after they were handed to him. Pt. ambulated to bathroom with walker and SBA. While standing at the sink, pt able to brush teeth with SBA. Pt. then requested to take a walk to increase activity tolerance. He walked for approximately 5 minutes with SBA using his walker without rest breaks. Pt. returned to reclining chair. OT provided skilled education on B UE exercises with a yellow theraband (under 10 lbs of pull). Pt. demonstrated proper positioning and use of targeted muscle groups for each exercise. Call light and phone within reach when OT left the room. All needs met. Education OT Patient Education: Correct positioning, Energy conservation, Home exercise program, Progress toward Goal/Update tx plan, Purpose of tx/functional activities, Reviewed precautions, Rehab process, Safety issues, Transfer techniques Teaching Recipient: Patient Teaching Methods: Demonstration, Discussion Response to Teaching: Verbalize Understanding, Return Demonstration OT Diecast Machine Operator Goals Intermediate Goals Time Frame: Nov 04, 2019 Eating (QC): 6 Oral Hygiene (QC): 6 Toileting Hygiene (QC): 6 Shower/Bathe Self (QC): 6 Upper Body Dressing (QC): 6 Lower Body Dressing (QC): 6 On/Off Footwear (QC): 6 Additional Goals: 1-Demonstrate ADL Tasks, 2-Verbalize Understanding, 3-Improv eStrength/Tristan 1=Demonstrate adherence to instructed precautions during ADL tasks. 2=Patient will verbalize/demonstrate understanding of assistive devices/modifications for ADL. 3=Patient will improve strength/tolerance for activity to enable patient to p erform ADL's. OT Education/Plan Problem List/Assessment Assessment: Decreased Activ Tolerance, Dependent Transfers Discharge Recommendations Plan/Recommendations: Continue POC Therapy Discharge Recommendati: Home & Family Treatment Plan/Plan of Care Treatment,Training & Education: Yes Patient would benefit from OT for education, treatment and training to promote independence in ADL's, mobility, safety and/or upper extremity function for ADL's. Plan of Care: ADL Retraining, Caregiver Training, Concurrent Therapy, Functional Mobility, Group Exercise/Act as Ind, UE Funct Exercise/Act Treatment Duration: Nov 04, 2019 Frequency: At least 5 of 7 days/Wk (IRF) Estimated Hrs Per Day: 1.5 hours per day Agreement: Yes Rehab Potential: Fair Time/GCodes Start Time: 14:00 Stop Time: 14:30 Total Time Billed (hr/min): 30 Billed Treatment Time 1, FA (15 minutes), EX (15 minutes) SHALINI PURI OTR Oct 23, 2019 14:36
--- NOTE | 2019-10-23 15:01 | Physical Therapy Daily Note ---
PT Daily Note-Current Subjective Pt states he is not in any pain but he is tired. "I have walked and exercised several times today" Agrees to therex in room Pain Location: No Pain Reported Mental Status Patient Orientation: Normal For Age Attachments: Lomeli Catheter Transfers SCALE: Activities may be completed with or without assistive devices. 4-Dcdfrvepcs-epwqdgj completes the activity by him/herself with no assistance from a helper. 5-Set-up or Clean-up Assistance-helper sets up or cleans up; patient completes activity. [place] assists only prior to or following the activity. 4-Supervision or Touching Assistance-helper provides verbal cues and/or touching/steadying and/or contact guard assistance as patient completes activity. Assistance may be provided throughout the activity or intermittently. 3-Partial/Moderate Assistance-helper does LESS THAN HALF the effort. [place] lifts, holds or supports trunk or limbs, but provides less than half the effort. 2-Substantial/Maximal Assistance-helper does MORE THAN HALF the effort. [place] lifts or holds trunk or limbs and provides more than half the effort. 7-Ewmhfvwdx-ydxazp does ALL the effort. Patient does none of the effort to complete the activity. Or, the assistance of 2 or more helpers is required for the patient to complete the activity. If activity was not attempted, code reason: 7-Patient Refused. 9-Not Applicable-not attempted and the patient did not perform the activity before the current illness, exacerbation or injury. 10-Not Attempted due to Environmental Limitations-(lack of equipment, weather restraints, etc.). 88-Not Attempted due to Medical Conditions or Safety Concerns. sit to stands x 3 SBA in lift recline chair Exercises Supine Ex: Bridging, Ankle pumps, Quad Set, Glut sets, Heel Slides, Short Arc Quads, Scooting (up in chair when layed flat), Straight leg raise, Hip abd/add Supine Reps: 10 (x2) Seated Therapy Exercises: Long arc quads, Hip flexion Seated Reps: 10 Assessment Current Status: Good Progress PT Short Term Goals Short Term Goals Time Frame: Oct 29, 2019 Roll Left & Right: 6 Sit to lyin Lying to sitting on side of be: 6 Sit to stand: 5 Chair/jea-zc-sjbun transfer: 5 Walk 10 feet: 5 Walk 50 feet with two turns: 5 Walk 150 feet: 5 PT Alf Goals Land Surveyor Goals PT Land Surveyor Goals Time Frame: Nov 12, 2019 Roll Left & Right (QC): 6 Sit to Lying (QC): 6 Lying-Sitting on Side/Bed(QC): 6 Sit to Stand (QC): 6 Chair/Nyv-dd-Lbsso Xfer(QC): 6 Toilet Transfer (QC): 6 Car Transfer (QC): 6 Does the Patient Walk: Yes Walk 10 feet (QC): 6 Walk 50ft with 2 Turns (QC): 6 Walk 150 ft (QC): 6 Walking 10ft on Uneven Surface: 6 1 Step (curb) (QC): 6 4 Steps (QC): 6 12 Steps (QC): 6 Picking up an Object (QC): 88 Wheel 50 feet with 2 turns (QC: 9 Wheel 150 feet: 9 PT Plan Treatment/Plan Treatment Plan: Continue Plan of Care Treatment Plan: Education, Functional Activity Tristan, Functional Strength, Group Therapy, Gait, Safety, Therapeutic Exercise, Transfers Treatment Duration: Nov 12, 2019 Frequency: At least 5 of 7 days/Wk (IRF) Estimated Hrs Per Day: 1.5 hours per day Patient and/or Family Agrees t: Yes Time/GCodes Time In: 1430 Time Out: 1500 Total Billed Treatment Time: 30 Total Billed Treatment 1,EX30m SUSAN SO FOUNDRY HAND Oct 23, 2019 15:01
[2019-10-23 18:00] VITALS: BP 114/72
[2019-10-23] MEDS: MELATONIN 10 MG TABLET PO SCH (20:08)
[2019-10-24 05:52] VITALS: BP 112/74
--- NOTE | 2019-10-24 06:11 | PM&R Progress Note ---
Subjective HPI/CC On Admission Date Seen by Provider: Oct 24, 2019 Time Seen by Provider: 09:45 Subjective/Events-last exam 10/24/19: Patient okay with discharge on Monday He did at one point have to do in/out caths in the past a year ago May need to go home with a catheter Overall improving immensely No seizures reported 10/23/19: Patient doing very well today wants to go home at the bedside Urology consult for Bladder issues and Urinary retention Still maintain with Lomeli Catheter Bowels are moving well Over all doing much better 10/22/19 Patient doing very well Slept well Labs are normal Needs systolic blood pressure kept less than 160 Sutures on his scalp are maintained Urology consultation for Urinary retention Review of Systems General: Fatigue, Malaise Neurological: Weakness Objective Exam Vital Signs Vital Signs Date Time Temp Pulse Resp B/P (MAP) Pulse Ox O2 Delivery O2 Flow Rate FiO2 10/24/19 21:00 Room Air 10/24/19 18:00 36.6 83 16 106/71 (83 94 Capillary Refill : Less Than 3 Seconds General Appearance: No Apparent Distress, WD/WN, Chronically ill, Thin HEENT: PERRL/EOMI, Normal ENT Inspection, Pharynx Normal Neck: Full Range of Motion, Normal Inspection, Non Tender, Supple, Carotid Bruit Respiratory: Chest Non Tender, Lungs Clear, Normal Breath Sounds, No Accessory Muscle Use, No Respiratory Distress Cardiovascular: Regular Rate, Rhythm, No Edema, No Gallop, No JVD, No Murmur, Normal Peripheral Pulses Gastrointestinal: Normal Bowel Sounds, No Organomegaly, No Pulsatile Mass, Non Tender, Soft Back: Normal Inspection, No CVA Tenderness, No Vertebral Tenderness Extremity: Normal Capillary Refill, Normal Inspection, Normal Range of Motion, Non Tender, No Calf Tenderness, No Pedal Edema Neurologic/Psychiatric: Alert, Oriented x3, No Motor/Sensory Deficits, Normal 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 FIM Transfers Therapy Code Descriptions/Definitions Functional [place] Measure: 0=Not Assessed/NA 4=Minimal Assistance 1=Total Assistance 5=Supervision or Setup 2=Maximal Assistance 6=Modified [place] 3=Moderate Assistance 7=Complete IndependenceSCALE: Activities may be completed with or without assistive devices. 4-Qbzoaijfyr-aezsvqj completes the activity by him/herself with no assistance from a helper. 5-Set-up or Clean-up Assistance-helper sets up or cleans up; patient completes activity. [place] assists only prior to or following the activity. 4-Supervision or Touching Assistance-helper provides verbal cues and/or touching/steadying and/or contact guard assistance as patient completes activity. Assistance may be provided throughout the activity or intermittently. 3-Partial/Moderate Assistance-helper does LESS THAN HALF the effort. [place] lifts, holds or supports trunk or limbs, but provides less than half the effort. 2-Substantial/Maximal Assistance-helper does MORE THAN HALF the effort. [place] lifts or holds trunk or limbs and provides more than half the effort. 1-Hqghnoact-omqxzg does ALL the effort. Patient does none of the effort to complete the activity. Or, the assistance of 2 or more helpers is required for the patient to complete the activity. If activity was not attempted, code reason: 7-Patient Refused. 9-Not Applicable-not attempted and the patient did not perform the activity before the current illness, exacerbation or injury. 10-Not Attempted due to Environmental Limitations-(lack of equipment, weather restraints, etc.). 88-Not Attempted due to Medical Conditions or Safety Concerns. Roll Left to Right (QC): 6 Sit to Lying (QC): 6 Sit to Stand (QC): 4 Chair/Osh-yv-Dgrth Xfer(QC): 4 Car Transfer (QC): 4 Gait Training Does the Patient Walk?: Yes Distance: 300', 150' Walk 10 feet (QC): 4 Walk 50 ft with 2 Turns(QC): 4 Walk 150 ft (QC): 4 Walking 10ft/uneven surface-QC: 4 Gait Persons Needed: 1 Gait Assistive Device: FWW Wheelchair Training Does the Pt Use a Wheelchair?: No Wheel 50 ft with 2 turns (QC): 9 Wheel 150 ft (QC): 9 Stair Training #of Steps: 4 1 Step (curb) (QC): 4 4 Steps (QC): 4 12 Steps (QC): 88 Balance Picking up an Object (QC): 88 ADL-Treatment Eating (QC): 6 Oral Hygiene (QC): 5 Bathing Location: L Arm, R Arm, L Upper Leg, R Upper Leg, L Lower Leg (including foot), R Lower Leg (including foot), Chest, Abdomen, Buttocks, Perineal Area Shower/Bathe Self (QC): 4 (s/u for shower, SBA during tasks, cues for minimal dampening/ washing of hair and patting dry and abdominal precautions. Pt completes with safety and IND.) Upper Body Dressing (QC): 6 Lower Body Dressing (QC): 5 (s/u for catheter threading.) On/Off Footwear (QC): 4 Toileting Hygiene (QC): 6 (IND) Toilet Transfer (QC): 4 (completes with SUP.) Assessment/Plan Assessment and Plan Assess & Plan/Chief Complaint Assessment: Low pressure hydrocephalus Seizure new onset Monday in IRF prompting return to [facility] Former alcohol user HTN BPH Plan: Monitor BP Check labs in am Monitor DIGITAL MARKETING COORDINATOR shunt IRF protocol 10/22/19: Urology consultation Monitor blood pressure doing well Monitor for any side effects from DIGITAL MARKETING COORDINATOR shunt 10/23/19; Continue aggressive treatment Urology consultation for Urinary retention Discuss disposition in team conference Maintain Keppra 10/24/19: Continue Keppra twice daily Monitor urinary retention Discharge home Monday (1) Hydrocephalus (2) Seizure (3) History of alcohol use (4) Thin build (5) Frailty LAURA CHEN DO Oct 24, 2019 06:11
[2019-10-24] MEDS: MULTIVIT W/MINERALS TAB (THERAGRAN M) PO SCH (08:14)
[2019-10-24] MEDS: amLODIPine 2.5MG (NORVASC) TAB PO SCH (08:14)
[2019-10-24] MEDS: DOCUSATE SODIUM 100 MG (COLACE) CAP PO SCH ×2 (08:14→20:29)
[2019-10-24] MEDS: SENNA W/DOCUSATE (SENOKOT S) TABLET PO SCH ×2 (08:14→20:29)
[2019-10-24] MEDS: TAMSULOSIN 0.4 MG (FLOMAX) CAP PO SCH (08:14)
[2019-10-24] MEDS: LOSARTAN 100 MG (COZAAR) TABLET PO SCH (08:14)
[2019-10-24] MEDS: polyethylene glycoL POWDER 17 GM (MIRALAX) PACK NG SCH ×2 (08:14→20:29)
[2019-10-24] MEDS: OMEGA 3 (FISH OIL) 1000 MG CAP PO SCH (08:15)
[2019-10-24] MEDS: LEVETIRACETAM 500 MG (KEPPRA) TAB PO SCH ×2 (08:15→20:27)
[2019-10-24] MEDS: LACTULOSE SYRUP 10GM/15ML (ENULOSE) 30ML UDC PO SCH ×3 (08:16→20:29)
[2019-10-24] MEDS: polyethylene glycoL POWDER 17 GM (MIRALAX) PACK PO SCH ×2 (08:16→20:29)
[2019-10-24] MEDS: TRIAMCINOLONE 0.1% CR (KENALOG) 15 GM TUBE TP SCH ×2 (08:16→20:29)
--- NOTE | 2019-10-24 09:01 | Occupational Ther Daily Note ---
OT Current Status-Daily Note Subjective [id number]: pt seen in recliner, pt denies pain. Alert/ oriented. Pt agrees to OT tx. Nursing made aware of outside task. [id number]: Pt seen in chair, pt denies pain and agrees to OT tx. Mental Status/Objective Patient Orientation: Normal For Age Attachments: Lomeli Catheter ADL-Treatment Therapy Code Descriptions/Definitions Functional [place] Measure: 0=Not Assessed/NA 4=Minimal Assistance 1=Total Assistance 5=Supervision or Setup 2=Maximal Assistance 6=Modified [place] 3=Moderate Assistance 7=Complete IndependenceSCALE: Activities may be completed with or without assistive devices. 7-Wqlmrhbdrx-lkzuzzh completes the activity by him/herself with no assistance from a helper. 5-Set-up or Clean-up Assistance-helper sets up or cleans up; patient completes activity. [place] assists only prior to or following the activity. 4-Supervision or Touching Assistance-helper provides verbal cues and/or touching/steadying and/or contact guard assistance as patient completes activity. Assistance may be provided throughout the activity or intermittently. 3-Partial/Moderate Assistance-helper does LESS THAN HALF the effort. [place] lifts, holds or supports trunk or limbs, but provides less than half the effort. 2-Substantial/Maximal Assistance-helper does MORE THAN HALF the effort. [place] lifts or holds trunk or limbs and provides more than half the effort. 1-Kaymsgsvm-rvzzbo does ALL the effort. Patient does none of the effort to complete the activity. Or, the assistance of 2 or more helpers is required for the patient to complete the activity. If activity was not attempted, code reason: 7-Patient Refused. 9-Not Applicable-not attempted and the patient did not perform the activity before the current illness, exacerbation or injury. 10-Not Attempted due to Environmental Limitations-(lack of equipment, weather restraints, etc.). 88-Not Attempted due to Medical Conditions or Safety Concerns. Eating (QC): 6 Oral Hygiene (QC): 6 Shower/Bathe Self (QC): 7 Lower Body Dressing (QC): 7 On/Off Footwear: 6 Toileting Hygiene (QC): 6 Toilet Transfer (QC): 6 Other Treatment Pt sit to stand with SBA, completes oral care and BM/ clean up with IND on this date. Safety with use of walker. Pt and OT discuss d/c date, no anticipated difficulties per pt. Pt ambulates with walker to outdoors, across multi surface textures with SBA. Pt's walker caught on bridge outside, pt continues walking with walker not supporting him. Pt educated on safety with walker use and that being one main concern of pt's d/c. Pt agrees. Sits to complete UE theraband ex with skilled cues for placement/ tension. pt completes 20 reps of 5 exercises bilaterally. Pt returns to room, all needs met, call light in reach. Pt sit to stand with SBA. Pt states PT allowed pt to ambulate without walker, agrees to functional ambulation task through halls without walker, no LOB, SBA. Pt sits EOM in gym to complete higher functional activity tolerance activity with arm bike for 10 min without rest break, minimal resistance, skilled cues for purpose of task. pt returns to room, all needs met, call light in reach. Education OT Patient Education: Correct positioning, Exercise program, Home exercise program, Modified ADL techniques, Progress toward Goal/Update tx plan, Purpose of tx/functional activities, Reviewed precautions, Safety issues, Transfer techniques Teaching Recipient: Patient Teaching Methods: Demonstration, Discussion Response to Teaching: Verbalize Understanding, Return Demonstration OT Diving Board Assembler Goals Residential Goals Time Frame: Nov 04, 2019 Eating (QC): 6 Oral Hygiene (QC): 6 Toileting Hygiene (QC): 6 Shower/Bathe Self (QC): 6 Upper Body Dressing (QC): 6 Lower Body Dressing (QC): 6 On/Off Footwear (QC): 6 Additional Goals: 1-Demonstrate ADL Tasks, 2-Verbalize Understanding, 3- ImproveStrength/Tristan 1=Demonstrate adherence to instructed precautions during ADL tasks. 2=Patient will verbalize/demonstrate understanding of assistive devices/modifications for ADL. 3=Patient will improve strength/tolerance for activity to enable patient to perform ADL's. OT Education/Plan Problem List/Assessment Assessment: Decreased Activ Tolerance, Decreased UE Strength, Impaired Funct Balance, Impaired I ADL's, Impaired Self-Care Skills Discharge Recommendations Plan/Recommendations: Continue POC Therapy Discharge Recommendati: Home & Family Treatment Plan/Plan of Care Treatment,Training & Education: Yes Patient would benefit from OT for education, treatment and training to promote independence in ADL's, mobility, safety and/or upper extremity function for ADL's. Plan of Care: ADL Retraining, Caregiver Training, Concurrent Therapy, Functional Mobility, Group Exercise/Act as Ind, UE Funct Exercise/Act Treatment Duration: Nov 04, 2019 Frequency: At least 5 of 7 days/Wk (IRF) Estimated Hrs Per Day: 1.5 hours per day Agreement: Yes Rehab Potential: Fair Time/GCodes Start Time: 08:00 (1100) Stop Time: 09:00 (1130) Total Time Billed (hr/min): 90 Billed Treatment Time [id number]: 1, ADL, FA, EX 2 (60) [id number]: 1, EX 2 (30) SHALINI PURI OTR Oct 24, 2019 09:01
--- NOTE | 2019-10-24 09:59 | Physical Therapy Daily Note ---
PT Daily Note-Current Subjective Patient in recliner pre tx, agrees to PT, no complaints of pain. Appearance Patient in recliner post tx with nurse call, phone, tray, all needs met. Mental Status Patient Orientation: Normal For Age Attachments: Lomeli Catheter Transfers SCALE: Activities may be completed with or without assistive devices. 0-Atntuppmpd-otwohjj completes the activity by him/herself with no assistance from a helper. 5-Set-up or Clean-up Assistance-helper sets up or cleans up; patient completes activity. [place] assists only prior to or following the activity. 4-Supervision or Touching Assistance-helper provides verbal cues and/or touching/steadying and/or contact guard assistance as patient completes activity. Assistance may be provided throughout the activity or intermittently. 3-Partial/Moderate Assistance-helper does LESS THAN HALF the effort. [place] lifts, holds or supports trunk or limbs, but provides less than half the effort. 2-Substantial/Maximal Assistance-helper does MORE THAN HALF the effort. [place] lifts or holds trunk or limbs and provides more than half the effort. 5-Jdcxmjrtc-btqdzq does ALL the effort. Patient does none of the effort to complete the activity. Or, the assistance of 2 or more helpers is required for the patient to complete the activity. If activity was not attempted, code reason: 7-Patient Refused. 9-Not Applicable-not attempted and the patient did not perform the activity before the current illness, exacerbation or injury. 10-Not Attempted due to Environmental Limitations-(lack of equipment, weather restraints, etc.). 88-Not Attempted due to Medical Conditions or Safety Concerns. Sit to Stand (QC): 5 Chair/Kfk-fv-Hdzhx Xfer(QC): 5 Gait Training Distance: 800', 120' Walk 10 feet (QC): 5 Walk 50 ft with 2 Turns(QC): 5 Walk 150 ft (QC): 5 Gait Persons Needed: 1 Gait Assistive Device: FWW Patient ambulated 800' with a rolling walker with setup, 120' with SBA without using an assistive device Exercises LAQ alternating for 5 min with 2# ankle weights. NuStep Minutes: 15 NuStep Workload: 5 Neuromuscular balance training with airex, stepping over it and onto and off of it from different directions Treatments balance training, gait training, functional strengthening Assessment Current Status: Fair Progress improving ambulation PT Short Term Goals Short Term Goals Time Frame: Oct 29, 2019 Roll Left & Right: 6 Sit to lyin Lying to sitting on side of be: 6 Sit to stand: 5 Chair/ahy-uq-bvppn transfer: 5 Walk 10 feet: 5 Walk 50 feet with two turns: 5 Walk 150 feet: 5 PT Histotechnologist Goals Halfway Goals PT Halfway Goals Time Frame: Nov 12, 2019 Roll Left & Right (QC): 6 Sit to Lying (QC): 6 Lying-Sitting on Side/Bed(QC): 6 Sit to Stand (QC): 6 Chair/Feo-kt-Tmslg Xfer(QC): 6 Toilet Transfer (QC): 6 Car Transfer (QC): 6 Does the Patient Walk: Yes Walk 10 feet (QC): 6 Walk 50ft with 2 Turns (QC): 6 Walk 150 ft (QC): 6 Walking 10ft on Uneven Surface: 6 1 Step (curb) (QC): 6 4 Steps (QC): 6 12 Steps (QC): 6 Picking up an Object (QC): 88 Wheel 50 feet with 2 turns (QC: 9 Wheel 150 feet: 9 PT Plan Problem List Problem List: Activity Tolerance, Functional Strength, Safety, Balance, Gait, Transfer Treatment/Plan Treatment Plan: Continue Plan of Care Treatment Plan: Education, Functional Activity Tristan, Functional Strength, Group Therapy, Gait, Safety, Therapeutic Exercise, Transfers Treatment Duration: Nov 12, 2019 Frequency: At least 5 of 7 days/Wk (IRF) Estimated Hrs Per Day: 1.5 hours per day Patient and/or Family Agrees t: Yes Safety Risks/Education Patient Education: Gait Training, Transfer Techniques, Correct Positioning, Safety Issues Teaching Recipient: Patient Teaching Methods: Demonstration, Discussion Response to Teaching: Reinforcement Needed Time/GCodes Time In: 0900 Time Out: 1000 Total Billed Treatment Time: 60 Total Billed Treatment 1 visit NM 15' EX 20' GT 25' CLAUDE OLIVO PT Oct 24, 2019 09:59
--- NOTE | 2019-10-24 11:43 | Progress Note ---
MARK NORMAN MED STUDENT 10/24/19 1143: Progress Note 68 yo M presents post-seizure with hydrocephalus. pt appearance is fragile, tall and thin. past medical history: alcohol abuse In my opinion, the following has been observed since 10/22/2019 pt is motivated to get better and not depend on ambulation assistance with walker pt is ready to discharge to his home with fiancee pt does not want to have catheter in, but understands that it might be the option currently. goals pt education on catheter use DENA ACEVES DO 10/25/19 0538: Supervisory-Addendum Brief Verification & Attestation Participated in pt care: history, MDM, physical Personally performed: exam, history, MDM, supervision of care Care discussed with: Medical Student Procedures: n/a Results interpretation: Verified all documentation Verification and Attestation of Medical Student E/M Service A medical student performed and documented this service in my presence. I rev iewed and verified all information documented by the medical student and made modifications to such information, when appropriate. I personally performed the physical exam and medical decision making. Dena Aceves, Oct 25, 2019,05:38 MARK NORMAN MED STUDENT Oct 24, 2019 11:43 DENA ACEVES DO Oct 25, 2019 05:38
[2019-10-24] MEDS: SODIUM CHLORIDE 1 GM TABLET PO SCH ×2 (12:13→20:26)
--- NOTE | 2019-10-24 12:41 | CONSULTATION REPORT ---
DATE OF SERVICE: 10/24/2019 ATTENDING PHYSICIAN: Dr. Aceves. SUMMARY: A 68-year-old white man recovering from brain surgery at the , apparently had urinary retention postoperatively. Catheter was inserted, which questioned difficulty. He has been wearing the catheter since he came to us. The patient describes about a year ago after brain surgery that he had urinary retention and had to do straight self-catheterization for a few months after which he did fine. He is taking Flomax daily. He denies any problems voiding for the past several months until this last surgery. He goes to Dr. Deng in [place] and his next appointment was last week. He lives in [place], which makes the [place] closer to him. IMPRESSION: Urinary retention. PLAN: Trial of voiding tomorrow and manage accordingly, then follow up again with Dr. eDng as before. The plan was fully explained to the patient. Job ID: [id number] DocumentID: [id number] Dictated Date: 10/24/2019 11:56:46 Utilities Estimator And Drafter Date: 10/24/2019 12:41:22 Dictated By: SEVERINO ZHENG MD
--- NOTE | 2019-10-24 13:30 | Physical Therapy Daily Note ---
PT Daily Note-Current Subjective Patient in recliner pre tx, agrees to PT, no complaints of pain. Appearance Patient in recliner post tx with nurse call, phone, tray, all needs met. Mental Status Patient Orientation: Normal For Age Attachments: Lomeli Catheter Transfers SCALE: Activities may be completed with or without assistive devices. 1-Cwvcftrsep-zgitqka completes the activity by him/herself with no assistance from a helper. 5-Set-up or Clean-up Assistance-helper sets up or cleans up; patient completes activity. [place] assists only prior to or following the activity. 4-Supervision or Touching Assistance-helper provides verbal cues and/or touching/steadying and/or contact guard assistance as patient completes activity. Assistance may be provided throughout the activity or intermittently. 3-Partial/Moderate Assistance-helper does LESS THAN HALF the effort. [place] lifts, holds or supports trunk or limbs, but provides less than half the effort. 2-Substantial/Maximal Assistance-helper does MORE THAN HALF the effort. [place] lifts or holds trunk or limbs and provides more than half the effort. 8-Qaacdltbi-pimgji does ALL the effort. Patient does none of the effort to complete the activity. Or, the assistance of 2 or more helpers is required for the patient to complete the activity. If activity was not attempted, code reason: 7-Patient Refused. 9-Not Applicable-not attempted and the patient did not perform the activity before the current illness, exacerbation or injury. 10-Not Attempted due to Environmental Limitations-(lack of equipment, weather restraints, etc.). 88-Not Attempted due to Medical Conditions or Safety Concerns. Sit to Stand (QC): 6 Chair/Rlp-px-Hneea Xfer(QC): 6 Gait Training Distance: 400', 150' Walk 10 feet (QC): 4 Walk 50 ft with 2 Turns(QC): 4 Gait Assistive Device: None SBA Exercises NuStep Minutes: 15 NuStep Workload: 5 Treatments transfers, ambulation, functional strengthening Assessment Current Status: Fair Progress improving endurance and ambulation PT Short Term Goals Short Term Goals Time Frame: Oct 29, 2019 Roll Left & Right: 6 Sit to lyin Lying to sitting on side of be: 6 Sit to stand: 5 Chair/xbc-dj-kazch transfer: 5 Walk 10 feet: 5 Walk 50 feet with two turns: 5 Walk 150 feet: 5 PT Senior Care Goals Senior Care Goals PT Senior Civil Engineer Goals Time Frame: Nov 12, 2019 Roll Left & Right (QC): 6 Sit to Lying (QC): 6 Lying-Sitting on Side/Bed(QC): 6 Sit to Stand (QC): 6 Chair/Kim-qm-Gqeul Xfer(QC): 6 Toilet Transfer (QC): 6 Car Transfer (QC): 6 Does the Patient Walk: Yes Walk 10 feet (QC): 6 Walk 50ft with 2 Turns (QC): 6 Walk 150 ft (QC): 6 Walking 10ft on Uneven Surface: 6 1 Step (curb) (QC): 6 4 Steps (QC): 6 12 Steps (QC): 6 Picking up an Object (QC): 88 Wheel 50 feet with 2 turns (QC: 9 Wheel 150 feet: 9 PT Plan Problem List Problem List: Activity Tolerance, Functional Strength, Safety, Balance, Gait, Transfer Treatment/Plan Treatment Plan: Continue Plan of Care Treatment Plan: Education, Functional Activity Tristan, Functional Strength, Group Therapy, Gait, Safety, Therapeutic Exercise, Transfers Treatment Duration: Nov 12, 2019 Frequency: At least 5 of 7 days/Wk (IRF) Estimated Hrs Per Day: 1.5 hours per day Patient and/or Family Agrees t: Yes Safety Risks/Education Patient Education: Gait Training, Transfer Techniques, Correct Positioning, Safety Issues Teaching Recipient: Patient Teaching Methods: Demonstration, Discussion Response to Teaching: Reinforcement Needed Time/GCodes Time In: 1300 Time Out: 1330 Total Billed Treatment Time: 30 Total Billed Treatment 1 visit EX 15' GT 15' CLAUDE OLIVO PT Oct 24, 2019 13:30
--- NOTE | 2019-10-24 14:56 | NUR ---
CM/SS ADMISSION and PATIENT CARE CONFERENCE Met with patient and his visitor to review Conference Summary. Patient is aware of his target discharge of Saturday, October 26, 2019, and is pleased and preparing to return home with his significant other, Barby Vaz. HHC: Discussed with patient that ARU Team recommended RN and PT short term. Patient initially indicated he did not feel this necessary, but visitor encouraged him to visit with Barby reeves same. Materials Director to followup tomorrow for final decision. Provided Medicare Compare and marked the 4 agencies in service area, provision to be determined by patient's choice as well as agency availability re start of service. DME: Patient has FWW, grab bars in bathroom, his shower has built in seat. [facility] [place], patient does not remember [facility] name. [facility] Medicare, patient has VA Insurance as well DME: Noted above. BARRIERS TO DISCHARGE PLAN: None noted. CONTACTS: Barby Milind, SO [address] [place] [address] Fish Jr. Ace, Son DPOA? Resides in [place] [phone] Esther Bello, Daughter [address] [place] [address] Patient was presented his Conference Summary, signed, charted. His discharge is planned in two days, no further reviews.
[2019-10-24] MEDS ORDERED: ATOR80TA76 PO (15:07)
[2019-10-24] MEDS ORDERED: ONDN4T PO (15:08)
[2019-10-24] MEDS ORDERED: TRIA1TAB3 PO (15:08)
--- NOTE | 2019-10-24 16:56 | NUR ---
Dr Royal here to see pt today. [facility]
[2019-10-24 18:00] VITALS: BP 106/71
[2019-10-24] MEDS: MELATONIN 10 MG TABLET PO SCH (20:27)
--- NOTE | 2019-10-25 05:52 | PM&R Progress Note ---
Subjective HPI/CC On Admission Date Seen by Provider: Oct 25, 2019 Time Seen by Provider: 09:45 Subjective/Events-last exam 10/25/19: Patient ready for discharge tomorrow Discontinue the Lomeli by Urology at 6:00 this morning and has not voided yet but hopefully he will Maintained on Flomax No pain is reported Ready for discharge 10/24/19: Patient okay with discharge on Monday He did at one point have to do in/out caths in the past a year ago May need to go home with a catheter Overall improving immensely No seizures reported 10/23/19: Patient doing very well today wants to go home at the bedside Urology consult for Bladder issues and Urinary retention Still maintain with Lomeli Catheter Bowels are moving well Over all doing much better 10/22/19 Patient doing very well Slept well Labs are normal Needs systolic blood pressure kept less than 160 Sutures on his scalp are maintained Urology consultation for Urinary retention Review of Systems General: Fatigue, Malaise Neurological: Weakness Objective Exam Vital Signs Vital Signs Date Time Temp Pulse Resp B/P (MAP) Pulse Ox O2 Delivery O2 Flow Rate FiO2 10/25/19 09:00 Room Air 10/25/19 06:00 36.9 86 18 99/56 (70) 93 Capillary Refill : Less Than 3 Seconds General Appearance: No Apparent Distress, WD/WN, Chronically ill, Thin HEENT: PERRL/EOMI, Normal ENT Inspection, Pharynx Normal Neck: Full Range of Motion, Normal Inspection, Non Tender, Supple, Carotid Bruit Respiratory: Chest Non Tender, Lungs Clear, Normal Breath Sounds, No Accessory Muscle Use, No Respiratory Distress Cardiovascular: Regular Rate, Rhythm, No Edema, No Gallop, No JVD, No Murmur, Normal Peripheral Pulses Gastrointestinal: Normal Bowel Sounds, No Organomegaly, No Pulsatile Mass, Non Tender, Soft Back: Normal Inspection, No CVA Tenderness, No Vertebral Tenderness Extremity: Normal Capillary Refill, Normal Inspection, Normal Range of Motion, Non Tender, No Calf Tenderness, No Pedal Edema Neurologic/Psychiatric: Alert, Oriented x3, No Motor/Sensory Deficits, Normal Mood/Affect, flower cheniller II-XII Norm as Tested, Motor Weakness (generalized weakness all extremities) Skin: Normal Color, Warm/Dry Lymphatic: No Adenopathy Results/Procedures Lab Laboratory Tests 10/25/19 11:30 Patient resulted labs reviewed. FIM Transfers Therapy Code Descriptions/Definitions Functional [place] Measure: 0=Not Assessed/NA 4=Minimal Assistance 1=Total Assistance 5=Supervision or Setup 2=Maximal Assistance 6=Modified [place] 3=Moderate Assistance 7=Complete IndependenceSCALE: Activities may be completed with or without assistive devices. 4-Gtvzrephbn-lmtleak completes the activity by him/herself with no assistance from a helper. 5-Set-up or Clean-up Assistance-helper sets up or cleans up; patient completes activity. [place] assists only prior to or following the activity. 4-Supervision or Touching Assistance-helper provides verbal cues and/or touching/steadying and/or contact guard assistance as patient completes activity. Assistance may be provided throughout the activity or intermittently. 3-Partial/Moderate Assistance-helper does LESS THAN HALF the effort. [place] lifts, holds or supports trunk or limbs, but provides less than half the effort. 2-Substantial/Maximal Assistance-helper does MORE THAN HALF the effort. [place] lifts or holds trunk or limbs and provides more than half the effort. 7-Snvsfngef-enmxxt does ALL the effort. Patient does none of the effort to complete the activity. Or, the assistance of 2 or more helpers is required for the patient to complete the activity. If activity was not attempted, code reason: 7-Patient Refused. 9-Not Applicable-not attempted and the patient did not perform the activity before the current illness, exacerbation or injury. 10-Not Attempted due to Environmental Limitations-(lack of equipment, weather restraints, etc.). 88-Not Attempted due to Medical Conditions or Safety Concerns. Roll Left to Right (QC): 6 Sit to Lying (QC): 6 Sit to Stand (QC): 6 Chair/Tel-ki-Sczpo Xfer(QC): 6 Car Transfer (QC): 4 Gait Training Does the Patient Walk?: Yes Distance: 400', 150' Walk 10 feet (QC): 4 Walk 50 ft with 2 Turns(QC): 4 Walk 150 ft (QC): 5 Walking 10ft/uneven surface-QC: 4 Gait Persons Needed: 1 Gait Assistive Device: None Wheelchair Training Does the Pt Use a Wheelchair?: No Wheel 50 ft with 2 turns (QC): 9 Wheel 150 ft (QC): 9 Stair Training #of Steps: 4 1 Step (curb) (QC): 4 4 Steps (QC): 4 12 Steps (QC): 88 Balance Picking up an Object (QC): 88 ADL-Treatment Eating (QC): 6 Oral Hygiene (QC): 6 Bathing Location: L Arm, R Arm, L Upper Leg, R Upper Leg, L Lower Leg (including foot), R Lower Leg (including foot), Chest, Abdomen, Buttocks, Perineal Area Shower/Bathe Self (QC): 7 Upper Body Dressing (QC): 6 Lower Body Dressing (QC): 7 On/Off Footwear (QC): 6 Toileting Hygiene (QC): 6 Toilet Transfer (QC): 6 Assessment/Plan Assessment and Plan Assess & Plan/Chief Complaint Assessment: Low pressure hydrocephalus Seizure new onset Monday in IRF prompting return to [facility] Former alcohol user HTN BPH Plan: Monitor BP Check labs in am Monitor DIGITAL TRAFFIC COORDINATOR shunt IRF protocol 10/22/19: Urology consultation Monitor blood pressure doing well Monitor for any side effects from DIGITAL TRAFFIC COORDINATOR shunt 10/23/19; Continue aggressive treatment Urology consultation for Urinary retention Discuss disposition in team conference Maintain Keppra 10/24/19: Continue Keppra twice daily Monitor urinary retention Discharge home Monday (1) Hydrocephalus (2) Seizure (3) History of alcohol use (4) Thin build (5) Frailty LAURA CHEN DO Oct 25, 2019 05:52
[2019-10-25 06:00] VITALS: BP 99/56
[2019-10-25 08:00] VITALS: BP 110/70
--- NOTE | 2019-10-25 08:28 | Occupational Ther Daily Note ---
OT Current Status-Daily Note Subjective Pt seen in recliner, agrees to OT tx. denies pain, denies dizziness in ambulation though furniture walks without walker in room. Pt in recliner upon OT entry, agrees to ther ex. Mental Status/Objective Patient Orientation: Normal For Age ADL-Treatment Therapy Code Descriptions/Definitions Functional [place] Measure: 0=Not Assessed/NA 4=Minimal Assistance 1=Total Assistance 5=Supervision or Setup 2=Maximal Assistance 6=Modified [place] 3=Moderate Assistance 7=Complete IndependenceSCALE: Activities may be completed with or without assistive devices. 1-Beyrpuznko-xcneqok completes the activity by him/herself with no assistance from a helper. 5-Set-up or Clean-up Assistance-helper sets up or cleans up; patient completes activity. [place] assists only prior to or following the activity. 4-Supervision or Touching Assistance-helper provides verbal cues and/or touching/steadying and/or contact guard assistance as patient completes activity. Assistance may be provided throughout the activity or intermittently. 3-Partial/Moderate Assistance-helper does LESS THAN HALF the effort. [place] lifts, holds or supports trunk or limbs, but provides less than half the effort. 2-Substantial/Maximal Assistance-helper does MORE THAN HALF the effort. [place] lifts or holds trunk or limbs and provides more than half the effort. 5-Wwkutezfr-tyvsey does ALL the effort. Patient does none of the effort to complete the activity. Or, the assistance of 2 or more helpers is required for the patient to complete the activity. If activity was not attempted, code reason: 7-Patient Refused. 9-Not Applicable-not attempted and the patient did not perform the activity before the current illness, exacerbation or injury. 10-Not Attempted due to Environmental Limitations-(lack of equipment, weather restraints, etc.). 88-Not Attempted due to Medical Conditions or Safety Concerns. Eating (QC): 6 Oral Hygiene (QC): 6 Shower/Bathe Self (QC): 6 Upper Body Dressing (QC): 6 Lower Body Dressing (QC): 6 On/Off Footwear: 6 Toileting Hygiene (QC): 6 Toilet Transfer (QC): 6 Other Treatment Pt sit to stands with SUP without use of walker. Gathers clothing from closet and ambulates to bathroom while furniture walking. Pt is educated on this and is asked if feel weak/ out of balance, pt denies. Pt completes toileting/ hygiene/ showering with IND on this date. Pt states readiness for home. Pt sits in recliner to complete HEP with handout and skilled cues/ demonstration. All questions addressed. Pt left with all needs met, call light in reach, pt in chair end of session. Pt completes urination in urinal upon entry, self clean up with IND. Pt sit to stand and ambulates ~200 feet without walker. Pt stands at tabletop level to complete UE shoulder/ fine motor and balance task without LOB. Pt completes stance for ~10 min without LOB. Ambulates ~200 feet back to room, all needs met, call light in reach. Education OT Patient Education: Correct positioning, Exercise program, Home exercise program, Progress toward Goal/Update tx plan, Purpose of tx/functional activities, Safety issues Teaching Recipient: Patient Teaching Methods: Demonstration, Handout, Discussion Response to Teaching: Verbalize Understanding, Return Demonstration OT Longterm Goals Revenue Stamp Cutter Goals Time Frame: Nov 04, 2019 Eating (QC): 6 Oral Hygiene (QC): 6 Toileting Hygiene (QC): 6 Shower/Bathe Self (QC): 6 Upper Body Dressing (QC): 6 Lower Body Dressing (QC): 6 On/Off Footwear (QC): 6 Additional Goals: 1-Demonstrate ADL Tasks, 2-Verbalize Understanding, 3- ImproveStrength/Tristan 1=Demonstrate adherence to instructed precautions during ADL tasks. 2=Patient will verbalize/demonstrate understanding of assistive devices/modifications for ADL. 3=Patient will improve strength/tolerance for activity to enable patient to perform ADL's. OT Education/Plan Problem List/Assessment Assessment: Decreased Activ Tolerance, Impaired I ADL's Discharge Recommendations Plan/Recommendations: Continue POC Therapy Discharge Recommendati: Home & Family Treatment Plan/Plan of Care Treatment,Training & Education: Yes Patient would benefit from OT for education, treatment and training to promote independence in ADL's, mobility, safety and/or upper extremity function for ADL's. Plan of Care: ADL Retraining, Caregiver Training, Concurrent Therapy, Functional Mobility, Group Exercise/Act as Ind, UE Funct Exercise/Act Treatment Duration: Nov 04, 2019 Frequency: At least 5 of 7 days/Wk (IRF) Estimated Hrs Per Day: 1.5 hours per day Agreement: Yes Rehab Potential: Fair Time/GCodes Start Time: 08:00 (1100) Stop Time: 09:00 (1130) Total Time Billed (hr/min): 90 Billed Treatment Time 1431-2338: 1, ADL 3, EX (60) 8724-2145: 1, EX, FA (30) SHALINI PURI OTR Oct 25, 2019 08:27
[2019-10-25] MEDS: LEVETIRACETAM 500 MG (KEPPRA) TAB PO SCH ×2 (09:05→20:29)
[2019-10-25] MEDS: TAMSULOSIN 0.4 MG (FLOMAX) CAP PO SCH (09:05)
[2019-10-25] MEDS: MULTIVIT W/MINERALS TAB (THERAGRAN M) PO SCH (09:07)
[2019-10-25] MEDS: amLODIPine 2.5MG (NORVASC) TAB PO SCH (09:07)
[2019-10-25] MEDS: SENNA W/DOCUSATE (SENOKOT S) TABLET PO SCH ×2 (09:08→20:31)
[2019-10-25] MEDS: polyethylene glycoL POWDER 17 GM (MIRALAX) PACK PO SCH ×2 (09:09→20:31)
[2019-10-25] MEDS: SODIUM CHLORIDE 1 GM TABLET PO SCH ×2 (09:09→20:30)
[2019-10-25] MEDS: LACTULOSE SYRUP 10GM/15ML (ENULOSE) 30ML UDC PO SCH ×3 (09:09→20:31)
[2019-10-25] MEDS: polyethylene glycoL POWDER 17 GM (MIRALAX) PACK NG SCH ×2 (09:10→20:31)
[2019-10-25] MEDS: DOCUSATE SODIUM 100 MG (COLACE) CAP PO SCH ×2 (09:10→20:31)
[2019-10-25] MEDS: TRIAMCINOLONE 0.1% CR (KENALOG) 15 GM TUBE TP SCH ×2 (09:10→20:31)
--- NOTE | 2019-10-25 09:24 | Progress Note - Urology ---
Progress Note-Urology Progress Notes/Assess & Plan Progress/Assessment & Plan SAUCEDO OUT. HAS NOT VOIDED YET. Final Diagnosis URINE RETENTION SEVERINO ZHENG MD Oct 25, 2019 09:24
--- NOTE | 2019-10-25 09:55 | Physical Therapy Daily Note ---
PT Daily Note-Current Subjective Patient in recliner pre tx, agrees to PT, has no complaints of pain. Appearance Patient in room post tx, he is now independent in his room, discussed with nurse. Mental Status Patient Orientation: Normal For Age Transfers SCALE: Activities may be completed with or without assistive devices. 1-Qpjzwtfjcc-bnxnfsm completes the activity by him/herself with no assistance from a helper. 5-Set-up or Clean-up Assistance-helper sets up or cleans up; patient completes activity. [place] assists only prior to or following the activity. 4-Supervision or Touching Assistance-helper provides verbal cues and/or touc gordy/steadying and/or contact guard assistance as patient completes activity. Assistance may be provided throughout the activity or intermittently. 3-Partial/Moderate Assistance-helper does LESS THAN HALF the effort. [place] lifts, holds or supports trunk or limbs, but provides less than half the effort. 2-Substantial/Maximal Assistance-helper does MORE THAN HALF the effort. [place] lifts or holds trunk or limbs and provides more than half the effort. 4-Inoiukkru-npjdit does ALL the effort. Patient does none of the effort to complete the activity. Or, the assistance of 2 or more helpers is required for the patient to complete the activity. If activity was not attempted, code reason: 7-Patient Refused. 9-Not Applicable-not attempted and the patient did not perform the activity before the current illness, exacerbation or injury. 10-Not Attempted due to Environmental Limitations-(lack of equipment, weather restraints, etc.). 88-Not Attempted due to Medical Conditions or Safety Concerns. Roll Left & Right (QC): 6 Sit to Lying (QC): 6 Lying to Sitting/Side of Bed(Q: 6 Sit to Stand (QC): 6 Chair/Any-ah-Grdwp Xfer(QC): 6 Toilet Transfer (QC): 6 Car Transfer (QC): 6 Patient is independent with bed mobility and transfers, independent with a car transfer. Gait Training Distance: 1000', 150' Walk 10 feet (QC): 6 Walk 50 ft with 2 Turns(QC): 6 Walk 150 ft (QC): 6 Walking 10ft/uneven surface-QC: 4 Gait Assistive Device: None Patient can ambulate 1000' without an assistive device with independence (including 50' with at least 2 turns of 90 degrees but needs SBA for 10' over an uneven surface) Wheelchair Training Does the Pt Use a Wheelchair?: No Stair Training Stair Training: Handrails/: 2 handrails #of Steps: 12 1 Step (curb) (QC): 4 4 Steps (QC): 4 12 Steps (QC): 4 Stairs: Pattern: Reciprocal Patient can go up and down 12 steps using 2 handrails with SBA Balance Picking up an Object (QC): 6 Exercises NuStep Minutes: 15 NuStep Workload: 5 Treatments bed mobility and transfers, ambulation, functional strengthening, stair training Assessment Current Status: Fair Progress patient is now independent without an assistive device for most functional mobility except for walking over uneven surfaces and stairs PT Short Term Goals Short Term Goals Time Frame: Oct 29, 2019 Roll Left & Right: 6 Sit to lyin Lying to sitting on side of be: 6 Sit to stand: 5 Chair/bae-yx-sotxr transfer: 5 Walk 10 feet: 5 Walk 50 feet with two turns: 5 Walk 150 feet: 5 PT Halfway Goals Halfway Goals PT Halfway Goals Time Frame: Nov 12, 2019 Roll Left & Right (QC): 6 Sit to Lying (QC): 6 Lying-Sitting on Side/Bed(QC): 6 Sit to Stand (QC): 6 Chair/Cdl-vj-Nmyuk Xfer(QC): 6 Toilet Transfer (QC): 6 Car Transfer (QC): 6 Does the Patient Walk: Yes Walk 10 feet (QC): 6 Walk 50ft with 2 Turns (QC): 6 Walk 150 ft (QC): 6 Walking 10ft on Uneven Surface: 6 1 Step (curb) (QC): 6 4 Steps (QC): 6 12 Steps (QC): 6 Picking up an Object (QC): 88 Wheel 50 feet with 2 turns (QC: 9 Wheel 150 feet: 9 PT Plan Problem List Problem List: Activity Tolerance, Functional Strength, Safety, Balance, Gait, Transfer Treatment/Plan Treatment Plan: Continue Plan of Care Treatment Plan: Education, Functional Activity Tristan, Functional Strength, Group Therapy, Gait, Safety, Therapeutic Exercise, Transfers Treatment Duration: Nov 12, 2019 Frequency: At least 5 of 7 days/Wk (IRF) Estimated Hrs Per Day: 1.5 hours per day Patient and/or Family Agrees t: Yes Safety Risks/Education Patient Education: Gait Training, Transfer Techniques, Steps, Correct Positioning, Safety Issues Teaching Recipient: Patient Teaching Methods: Demonstration, Discussion Response to Teaching: Reinforcement Needed Time/GCodes Time In: 0900 Time Out: 1000 Total Billed Treatment Time: 60 Total Billed Treatment 1 visit EX 15' FA 45' CLAUDE OLIVO PT Oct 25, 2019 09:55
[2019-10-25] MEDS: LOSARTAN 100 MG (COZAAR) TABLET PO SCH (10:04)
[2019-10-25] MEDS: OMEGA 3 (FISH OIL) 1000 MG CAP PO SCH (10:04)
[2019-10-25] MEDS ORDERED: LEVE500T6 PO (10:22)
[2019-10-25] MEDS ORDERED: OXYC5TAB96 PO (10:22)
[2019-10-25] MEDS ORDERED: TMSL.4C PO (10:22)
[2019-10-25] MEDS ORDERED: NF-NACL1GT PO (10:22)
[2019-10-25] MEDS ORDERED: AMLO2.5T4 PO (10:22)
--- NOTE | 2019-10-25 11:00 | NUR ---
VOIDED 200 CC SINCE SAUCEDO CATHETER DC'D. WILL CONTINUE TO MONITOR.
--- NOTE | 2019-10-25 11:01 | NUR ---
CM/SS CONCURRENT DOCUMENTATION Followup with patient this a.m. It has not yet been determined whether he will be discharged with a catheter; however, Unit RN was in room during discussion and patient continues to decline [facility] services. Updated physician. Patient to discharge tomorrow, Monday10/26/19, home with farhad Dior as before. Addendum: 10/25/19 at 1353 by KELIN GANN IMM2 presented, signed, charted. Patient verbalized no intention to appeal and indicates his readiness to return home.
[2019-10-25 11:55] LABS: BUN/CREATININE RATIO 16; CALCIUM 9.2 MG/DL (8.5-10.1); CARBON DIOXIDE 22 MMOL/L (21-32); CHLORIDE 100 MMOL/L (98-107); CREATININE SERUM 0.73 MG/DL (0.60-1.30); GFR ESTIMATED > 60; GLUCOSE 106 MG/DL (70-105); SODIUM 136 MMOL/L (135-145)
--- NOTE | 2019-10-25 13:29 | Physical Therapy Daily Note ---
PT Daily Note-Current Subjective Patient in recliner pre tx, agrees to PT, no complaints of pain. Appearance Patient in room post tx with his SO, patient is independent in his room. Mental Status Patient Orientation: Normal For Age Transfers SCALE: Activities may be completed with or without assistive devices. 5-Npvqodqrpk-tncnqcu completes the activity by him/herself with no assistance from a helper. 5-Set-up or Clean-up Assistance-helper sets up or cleans up; patient completes activity. [place] assists only prior to or following the activity. 4-Supervision or Touching Assistance-helper provides verbal cues and/or touching/steadying and/or contact guard assistance as patient completes activity. Assistance may be provided throughout the activity or intermittently. 3-Partial/Moderate Assistance-helper does LESS THAN HALF the effort. [place] lifts, holds or supports trunk or limbs, but provides less than half the effort. 2-Substantial/Maximal Assistance-helper does MORE THAN HALF the effort. [place] lifts or holds trunk or limbs and provides more than half the effort. 3-Zuebljcja-zjyttz does ALL the effort. Patient does none of the effort to complete the activity. Or, the assistance of 2 or more helpers is required for the patient to complete the activity. If activity was not attempted, code reason: 7-Patient Refused. 9-Not Applicable-not attempted and the patient did not perform the activity before the current illness, exacerbation or injury. 10-Not Attempted due to Environmental Limitations-(lack of equipment, weather restraints, etc.). 88-Not Attempted due to Medical Conditions or Safety Concerns. Sit to Stand (QC): 6 Chair/Dnf-kk-Onqck Xfer(QC): 6 Gait Training Distance: 500'x2 Walk 10 feet (QC): 6 Walk 50 ft with 2 Turns(QC): 6 Walk 150 ft (QC): 6 Gait Assistive Device: None steady ambulation, slumped posture Exercises NuStep Minutes: 15 NuStep Workload: 5 Treatments transfers, ambulation, functional strengthening Assessment Current Status: Fair Progress improving mobility, patient DC tomorrow PT Short Term Goals Short Term Goals Time Frame: Oct 29, 2019 Roll Left & Right: 6 Sit to lyin Lying to sitting on side of be: 6 Sit to stand: 5 Chair/cal-xh-jmofc transfer: 5 Walk 10 feet: 5 Walk 50 feet with two turns: 5 Walk 150 feet: 5 PT Chcf Goals Steward/Stewardess Wine Goals PT Steward/Stewardess Wine Goals Time Frame: Nov 12, 2019 Roll Left & Right (QC): 6 Sit to Lying (QC): 6 Lying-Sitting on Side/Bed(QC): 6 Sit to Stand (QC): 6 Chair/Oqm-gs-Usxgt Xfer(QC): 6 Toilet Transfer (QC): 6 Car Transfer (QC): 6 Does the Patient Walk: Yes Walk 10 feet (QC): 6 Walk 50ft with 2 Turns (QC): 6 Walk 150 ft (QC): 6 Walking 10ft on Uneven Surface: 6 1 Step (curb) (QC): 6 4 Steps (QC): 6 12 Steps (QC): 6 Picking up an Object (QC): 88 Wheel 50 feet with 2 turns (QC: 9 Wheel 150 feet: 9 PT Plan Problem List Problem List: Activity Tolerance, Functional Strength, Safety, Balance, Gait, Transfer Treatment/Plan Treatment Plan: Continue Plan of Care Treatment Plan: Education, Functional Activity Tristan, Functional Strength, Gr oup Therapy, Gait, Safety, Therapeutic Exercise, Transfers Treatment Duration: Nov 12, 2019 Frequency: At least 5 of 7 days/Wk (IRF) Estimated Hrs Per Day: 1.5 hours per day Patient and/or Family Agrees t: Yes Safety Risks/Education Patient Education: Gait Training, Transfer Techniques, Correct Positioning, Safety Issues Teaching Recipient: Patient Teaching Methods: Demonstration, Discussion Response to Teaching: Reinforcement Needed Time/GCodes Time In: 1300 Time Out: 1330 Total Billed Treatment Time: 30 Total Billed Treatment 1 visit EX 15' GT 15' CLAUDE OLIVO PT Oct 25, 2019 13:29
--- NOTE | 2019-10-25 14:00 | NUR ---
DR. BESS'S ( NEUROSURGEON) OFFICE CALLED TO INQUIRE WHEN SUTURES CAN BE REMOVED. HOME HEALTH NURSE WILL FOLLOW UP WITH PATIENT AND TO CALL THEIR OFFICE AROUND OCTOBER 30 TO TELL THEM HOW INCISION LOOKS AND THEY WILL TELL HER IF OK FOR HER TO REMOVE SUTURES.
--- NOTE | 2019-10-25 15:00 | NUR ---
DR. ZHENG NOTIFIED THAT PATIENT VOIDED 200 CC AT 1100 AND 200 CC AGAIN AT 1430. BLADDER SCAN AT [address] ZHENG STATES HE SHOULD BE FINE TO BE DISCHARGED TOMORROW AND TO FOLLOW UP WITH UROLOGIST IN [place].
--- NOTE | 2019-10-25 16:52 | NUR ---
CM/SS DISCHARGE PLANNING During discharge finalization, Unit RN spoke with the office of Dr. Ravi Easley MD, Neurosurgery, [facility]. They requested that patient's incisions be assessed on or about October 30, an update to Dr. Easley, with his determination to follow whether to leave or remove sutures. Presented Medicare Compare to patient and SO/Barby, they agreed to referral to home health agencies [facility] and [facility] in [place]. With skepticism about a one-order visit, referral completed with [facility]. After almost a 2 hour delay for their review and discussion, they confirmed an agency would not be paid for only one such visit. Airplane Inspector then attempted to maneuver patient's primary care through [facility]. They have not confirmed anything at this time and patient has been instructed scenario writer will followup Monday due to late hour and update him re same. He is current under Team 3, Dr. Aiden Lewis, RN Jenny. The request is: That patient be given a face to face appointment with his PCP Dr. Aiden Lewis and/or his RN/Jenny at his clinic in [place]. That they make the assessment per Dr. Easley, that the two offices communicate, and that patient's care plan is carried out at his local clinic. Patient and Unit RN have been updated, scenario writer has included this information in the discharge instructions. [place] Main: [phone] Patient is with Team 3, [facility]
[2019-10-25 17:55] VITALS: BP 105/70
--- NOTE | 2019-10-25 18:00 | NUR ---
VOIDED 525 CC TODAY AND FEELS IS EMPTYING BLADDER. A GOOD DAY AND LOOKING FORWARD TO DISCHARGE IN AM.
[2019-10-25] MEDS: MELATONIN 10 MG TABLET PO SCH (20:29)
[2019-10-26 06:00] VITALS: BP 112/67
--- NOTE | 2019-10-26 07:29 | Discharge Summary ---
Diagnosis/Chief Complaint Date of Admission Oct 21, 2019 at 15:00 Date of Discharge Discharge Date: Oct 25, 2019 Discharge Diagnosis Assessment: Low pressure hydrocephalus Seizure new onset Monday in IRF prompting return to [facility] Former alcohol user HTN BPH Plan: Monitor BP Check labs in am Monitor ENGINEER SPECIALIST shunt IRF protocol 10/22/19: Urology consultation Monitor blood pressure doing well Monitor for any side effects from ENGINEER SPECIALIST shunt 10/23/19; Continue aggressive treatment Urology consultation for Urinary retention Discuss disposition in team conference Maintain Keppra 10/24/19: Continue Keppra twice daily Monitor urinary retention Discharge home Monday (1) Hydrocephalus (2) Seizure (3) History of alcohol use (4) Thin build (5) Frailty Discharge Summary Discharge Physical Examination Allergies: Coded Allergies: No Allergy Information Available (Unverified , 10/18/19) Vitals & I&Os Vital Signs Date Time Temp Pulse Resp B/P (MAP) Pulse Ox O2 Delivery O2 Flow Rate FiO2 10/26/19 11:00 36.8 81 16 112/67 94 Room Air General Appearance: Alert, Oriented X3, Cooperative Respiratory: Clear to Auscultation Neuro: Normal Gait, Normal Speech, Strength at 5/5 X4 Ext Hospital Course Was the Problem List Reviewed?: Yes Hospital course: Patient had an uneventful hospital course for 6 days after he was readmitted after I sent him back to 6 hours after he was admitted to rehab when he had a new onset seizure. ENGINEER SPECIALIST shunt was adjusted a couple of times repeat scans were reviewed and it was apparent that the cerebral spinal fluid was over drained and that was what caused the seizure so that was adjusted to a very low pressure gradient and he did very well. Lomeli catheter was discontinued by urology he was voiding well did not have any retention issues at time of discharge but I did maintain on Flomax daily. He had no issues while he was in rehab able to participate in all therapy and he was safely discharged with his fiance back home with close follow-up with his PCP. Labs (last 24 hrs) Laboratory Tests 10/22/19 05:47: White Blood Count 9.1, Red Blood Count 3.92L, Hemoglobin 12.5L, Hematocrit 36L, Mean Corpuscular Volume 93, Mean Corpuscular Hemoglobin 32, Mean Corpuscular Hemoglobin Concent 34, Red Cell Distribution Width 12.7, Platelet Count 330, Mean Platelet Volume 9.4, Neutrophils (%) (Auto) 72, Lymphocytes (%) (Auto) 21, Monocytes (%) (Auto) 6, Eosinophils (%) (Auto) 1, Basophils (%) (Auto) 0, Ne utrophils # (Auto) 6.5, Lymphocytes # (Auto) 1.9, Monocytes # (Auto) 0.6, Eosinophils # (Auto) 0.1, Basophils # (Auto) 0.0, Sodium Level 134L, Potassium Level 3.9, Chloride Level 102, Carbon Dioxide Level 23, Anion Gap 9, Blood Urea Nitrogen 13, Creatinine 0.63, Estimat Glomerular Filtration Rate > 60, BUN/Creatinine Ratio 21, Glucose Level 101, Calcium Level 8.3L, Corrected Calcium 8.9, Total Bilirubin 0.8, Aspartate Amino Transf (AST/SGOT) 13, Alanine Aminotransferase (ALT/SGPT) 17, Alkaline Phosphatase 62, Total Protein 5.4L, Albumin 3.3 10/25/19 11:30: Sodium Level 136, Potassium Level 4.0, Chloride Level 100, Carbon Dioxide Level 22, Anion Gap 14, Blood Urea Nitrogen 12, Creatinine 0.73, Estimat Glomerular Filtration Rate > 60, BUN/Creatinine Ratio 16, Glucose Level 106H, Calcium Level 9.2 Pending Labs Laboratory Tests 10/22/19 05:47: White Blood Count 9.1, Red Blood Count 3.92, Hemoglobin 12.5, Hematocrit 36, Mean Corpuscular Volume 93, Mean Corpuscular Hemoglobin 32, Mean Corpuscular Hemoglobin Concent 34, Red Cell Distribution Width 12.7, Platelet Count 330, Mean Platelet Volume 9.4, Neutrophils (%) (Auto) 72, Lymphocytes (%) (Auto) 21, Monocytes (%) (Auto) 6, Eosinophils (%) (Auto) 1, Basophils (%) (Auto) 0, Neutrophils # (Auto) 6.5, Lymphocytes # (Auto) 1.9, Monocytes # (Auto) 0.6, Eosinophils # (Auto) 0.1, Basophils # (Auto) 0.0, Sodium Level 134, Potassium Level 3.9, Chloride Level 102, Carbon Dioxide Level 23, Anion Gap 9, Blood Urea Nitrogen 13, Creatinine 0.63, Estimat Glomerular Filtration Rate > 60, BUN/Creatinine Ratio 21, Glucose Level 101, Calcium Level 8.3, Corrected Calcium 8.9, Total Bilirubin 0.8, Aspartate Amino Transf (AST/SGOT) 13, Alanine Aminotransferase (ALT/SGPT) 17, Alkaline Phosphatase 62, Total Protein 5.4, Alb umin 3.3 10/25/19 11:30: Sodium Level 136, Potassium Level 4.0, Chloride Level 100, Carbon Dioxide Level 22, Anion Gap 14, Blood Urea Nitrogen 12, Creatinine 0.73, Estimat Glomerular Filtration Rate > 60, BUN/Creatinine Ratio 16, Glucose Level 106, Calcium Level 9.2 Discharge Home Medications: Active Scripts Active Sodium Chloride 1 Gm Tab 2 Gm PO BID Levetiracetam 500 Mg Tablet 750 Mg PO BID Oxycodone IR (Oxycodone HCl) 5 Mg Tablet 5 Mg PO Q4H PRN Amlodipine Besylate 2.5 Mg Tablet 7.5 Mg PO DAILY Flomax (Tamsulosin HCl) 0.4 Mg Cap 0.4 Mg PO DAILY Reported Zofran (Ondansetron HCl) 4 Mg Tab 4 Mg PO Q6H PRN Atorvastatin Calcium 80 Mg Tablet 40 Mg PO HS TAKES OF AN 80MG TAB Multivitamins with Minerals (Multivitamin with Minerals) 1 Each Tablet 1 Each PO DAILY Miralax (Polyethylene Glycol 3350) 17 Gm Powd.pack 17 Gm NG DAILY PRN Losartan Potassium 100 Mg Tablet 100 Mg PO DAILY Fish Oil 1,000 mg Softgel (Zebulon-3/Dha/Epa/Fish Oil) 1 Each Capsule 1 Each PO DAILY Instructions to patient/family Please see electronic discharge instructions given to patient. Diagnosis/Problems Diagnosis/Problems (1) Hydrocephalus (2) Seizure (3) History of alcohol use (4) Thin build (5) Frailty Clinical Quality Measures DVT/VTE Risk/Contraindication: Risk Factor Score Per Nursin RFS Level Per Nursing on Admit: 4+=Very High LAURA CHEN DO Oct 26, 2019 07:29
--- NOTE | 2019-10-26 09:31 | Physical Therapy Daily Note ---
PT Daily Note-Current Transfers SCALE: Activities may be completed with or without assistive devices. 8-Nzopjmnbeo-zzxykcv completes the activity by him/herself with no assistance from a helper. 5-Set-up or Clean-up Assistance-helper sets up or cleans up; patient completes activity. Elmo assists only prior to or following the activity. 4-Supervision or Touching Assistance-helper provides verbal cues and/or touching/steadying and/or contact guard assistance as patient completes activity. Assistance may be provided throughout the activity or intermittently. 3-Partial/Moderate Assistance-helper does LESS THAN HALF the effort. Elmo lifts, holds or supports trunk or limbs, but provides less than half the effort. 2-Substantial/Maximal Assistance-helper does MORE THAN HALF the effort. Elmo lifts or holds trunk or limbs and provides more than half the effort. 7-Txybphuhd-jlqorj does ALL the effort. Patient does none of the effort to complete the activity. Or, the assistance of 2 or more helpers is required for the patient to complete the activity. If activity was not attempted, code reason: 7-Patient Refused. 9-Not Applicable-not attempted and the patient did not perform the activity before the current illness, exacerbation or injury. 10-Not Attempted due to Environmental Limitations-(lack of equipment, weather restraints, etc.). 88-Not Attempted due to Medical Conditions or Safety Concerns. PT Short Term Goals Short Term Goals Time Frame: Oct 29, 2019 Roll Left & Right: 6 Sit to lyin Lying to sitting on side of be: 6 Sit to stand: 5 Chair/fyu-cv-wncyu transfer: 5 Walk 10 feet: 5 Walk 50 feet with two turns: 5 Walk 150 feet: 5 PT Master Cook Goals Master Cook Goals PT Halfway Goals Time Frame: Nov 12, 2019 Roll Left & Right (QC): 6 Sit to Lying (QC): 6 Lying-Sitting on Side/Bed(QC): 6 Sit to Stand (QC): 6 Chair/Ssd-wz-Fywfp Xfer(QC): 6 Toilet Transfer (QC): 6 Car Transfer (QC): 6 Does the Patient Walk: Yes Walk 10 feet (QC): 6 Walk 50ft with 2 Turns (QC): 6 Walk 150 ft (QC): 6 Walking 10ft on Uneven Surface: 6 1 Step (curb) (QC): 6 4 Steps (QC): 6 12 Steps (QC): 6 Picking up an Object (QC): 88 Wheel 50 feet with 2 turns (QC: 9 Wheel 150 feet: 9 PT Plan Treatment/Plan Treatment Plan: Education, Functional Activity Tristan, Functional Strength, Group Therapy, Gait, Safety, Therapeutic Exercise, Transfers Treatment Duration: Nov 12, 2019 Frequency: At least 5 of 7 days/Wk (IRF) Estimated Hrs Per Day: 1.5 hours per day Patient and/or Family Agrees t: Yes NGOZI HAMMER BOX CLOSING MACHINE OPERATOR Oct 26, 2019 09:31
[2019-10-26] MEDS: polyethylene glycoL POWDER 17 GM (MIRALAX) PACK PO SCH (10:03)
[2019-10-26] MEDS: SENNA W/DOCUSATE (SENOKOT S) TABLET PO SCH (10:03)
[2019-10-26] MEDS: polyethylene glycoL POWDER 17 GM (MIRALAX) PACK NG SCH (10:04)
[2019-10-26] MEDS: DOCUSATE SODIUM 100 MG (COLACE) CAP PO SCH (10:04)
[2019-10-26] MEDS: LACTULOSE SYRUP 10GM/15ML (ENULOSE) 30ML UDC PO SCH (10:04)
[2019-10-26] MEDS: OMEGA 3 (FISH OIL) 1000 MG CAP PO SCH (10:05)
[2019-10-26] MEDS: LOSARTAN 100 MG (COZAAR) TABLET PO SCH (10:05)
[2019-10-26] MEDS: TRIAMCINOLONE 0.1% CR (KENALOG) 15 GM TUBE TP SCH (10:05)
[2019-10-26] MEDS: amLODIPine 2.5MG (NORVASC) TAB PO SCH (10:05)
[2019-10-26] MEDS: TAMSULOSIN 0.4 MG (FLOMAX) CAP PO SCH (10:05)
[2019-10-26] MEDS: LEVETIRACETAM 500 MG (KEPPRA) TAB PO SCH (10:06)
[2019-10-26] MEDS: MULTIVIT W/MINERALS TAB (THERAGRAN M) PO SCH (10:06)
[2019-10-26] MEDS: SODIUM CHLORIDE 1 GM TABLET PO SCH (10:07)
--- NOTE | 2019-10-26 10:15 | Progress Note - Urology ---
Progress Note-Urology Progress Notes/Assess & Plan Progress/Assessment & Plan CONTINUES WELL ENNIS. HOME TODAY AND TO FOLLOW UP WITH DR DO Final Diagnosis URINE RETENTION (RESOLVED) SEVERINO ZHENG MD Oct 26, 2019 10:15
[2019-10-26 11:00] VITALS: BP 112/67
--- NOTE | 2019-10-26 11:30 | NUR ---
YOLANDA TORRE demonstrates understanding of discharge instructions and accurately returns instructions upon questioning. Copy of Post-Discharge Instructions given to PATIENT. YOLANDA TORRE is able to manage continuing needs after discharge. Patients belongings returned to PATIENT. Patient discharged from 231[facility]1 on at . YOLANDA TORRE left floor via WC, accompanied by STAFF AND SHAD.
--- NOTE | 2019-10-28 14:22 | NUR ---
CM/SS POST DISCHARGE nutritional health coach followed up with [facility], Team [facility], and was told that both nurses were on the phone and would call me back. Each of poem writer's calls Monday and this a.m. were reportedly noted in a running summary, this should reflect the committment to attempt to get appointment for patient for suture removal. After poem writer spoke with Team 3 office, received a call from patient's SO/Barby who stated they had a telehealth this a.m. with a Neurosurgeon from who stated the sutures needed to come out ruthy. Household Personal Assistant then advised patient/Barby to call the [facility] office to request the appointment. Contacted Barby after about 2 hours for update, at this time mid-afternoon neither of us have had a response to the multiple requests. Addendum: 10/28/19 at 1501 by KELIN NICHOLE again contacted Team 3 office in [place] and did speak with RN. She will contact patient directly to make appointment for suture removal. Discharge interventions completed.
--- NOTE | 2019-10-28 14:40 | Therapy Team Discharge Summary ---
Therapy Discharge Summary Discharge Recommendations Date of Discharge Oct 26, 2019 at 11:30 Physical Therapy This patient admitted to ARU post shunt placementdue to hydrocephaly. Prior to this, he was indep with all mobility. Upon admission to ARU, he was SBA with functional transfers and gait. Treatment has focused on functional strength, balance, safety to promote improved gait and transfers. He has made functional progress, although step and uneven surface goals not fully met. He is a level, he can manage at home. Will DC from ARU at this time. Occupational Therapy Decreased Activ Tolerance, Impaired I ADL's PT Long-Term Goals Returned Telephone Equipment Appraiser Goals PT Long-Term Goals Time Frame: Nov 12, 2019 Roll Left to Right (QC): 6 (met) Sit to Lying (QC): 6 (met) Lying-Sitting on Side/Bed(QC): 6 (met) Sit to Stand (QC): 6 (met) Chair/Dor-ox-Qaxgo Xfer(QC): 6 (met) Car Transfer (QC): 6 (met) Does the Patient Walk: Yes Walk 10 feet (QC): 6 (met) Walk 10ft-Uneven Surface(QC): 6 (unmet) Walk 50ft with 2 Turns (QC): 6 (met) Walk 150 ft (QC): 6 (met) Wheel 50 feet with 2 turns (QC: 9 1 Step (curb) (QC): 6 (unmet) 4 Steps (QC): 6 (umet) 12 Steps (QC): 6 (unmet) Picking up an Object (QC): 88 OT Returned Telephone Equipment Appraiser Goals Returned Telephone Equipment Appraiser Goals Time Frame: Nov 04, 2019 Eating (QC): 6 Oral Hygiene (QC): 6 Shower/Bathe Self (QC): 6 Upper Body Dressing (QC): 6 Lower Body Dressing (QC): 6 On/Off Footwear (QC): 6 Toileting Hygiene (QC): 6 Toilet/Commode Transfer (QC): 6 Additional Goals: 1-Demonstrate ADL Tasks, 2-Verbalize Understanding, 3- ImproveStrength/Tristan 1=Demonstrate adherence to instructed precautions during ADL tasks. 2=Patient will verbalize/demonstrate understanding of assistive devices/modifications for ADL. 3=Patient will improve strength/tolerance for activity to enable patient to perform ADL's. VIJAY SMITH PT Oct 28, 2019 14:40
--- NOTE | 2019-10-29 08:27 | Therapy Team Discharge Summary ---
Therapy Discharge Summary Discharge Recommendations Date of Discharge Oct 26, 2019 at 11:30 Occupational Therapy Pt admits to ARU with dx of hydrocephaly s/p shunt placement. Pt admission ADLs include eating with s/u, oral hygiene/ showering/ toileting with CGA to SBA and LB dressing min A. Pt and OT work toward higher fx IND through ADL tasks, safety training, UE functional activity endurance/ strengthening. pt d/c's with all LTGs met and IND with all tasks. Pt d/c OT at this time. Decreased Activ Tolerance, Impaired I ADL's PT [facility] Goals [facility] Goals PT Windshield Repair Technician Goals Time Frame: Nov 12, 2019 Roll Left to Right (QC): 6 (met) Sit to Lying (QC): 6 (met) Lying-Sitting on Side/Bed(QC): 6 (met) Sit to Stand (QC): 6 (met) Chair/Jox-hm-Ikyqz Xfer(QC): 6 (met) Car Transfer (QC): 6 (met) Does the Patient Walk: Yes Walk 10 feet (QC): 6 (met) Walk 10ft-Uneven Surface(QC): 6 (unmet) Walk 50ft with 2 Turns (QC): 6 (met) Walk 150 ft (QC): 6 (met) Wheel 50 feet with 2 turns (QC: 9 1 Step (curb) (QC): 6 (unmet) 4 Steps (QC): 6 (umet) 12 Steps (QC): 6 (unmet) Picking up an Object (QC): 88 OT [facility] Goals [facility] Goals Time Frame: Nov 04, 2019 Eating (QC): 6 Oral Hygiene (QC): 6 Shower/Bathe Self (QC): 6 Upper Body Dressing (QC): 6 Lower Body Dressing (QC): 6 On/Off Footwear (QC): 6 Toileting Hygiene (QC): 6 Toilet/Commode Transfer (QC): 6 Additional Goals: 1-Demonstrate ADL Tasks, 2-Verbalize Understanding, 3- ImproveStrength/Tristan 1=Demonstrate adherence to instructed precautions during ADL tasks. 2=Patient will verbalize/demonstrate understanding of assistive devices/mod ifications for ADL. 3=Patient will improve strength/tolerance for activity to enable patient to perform ADL's. SHALINI PURI OTR Oct 29, 2019 08:27
== END 2019-10-26 11:30 | disposition home or self-care (01) | DRG 57 ==
PROVIDERS: ADMIT Internal Medicine; ATTEND Internal Medicine
DX: G91.8 Other hydrocephalus (principal); Z98.2 Presence of cerebrospinal fluid drainage device; N40.1 Benign prostatic hyperplasia with lower urinary tract symptoms; R33.8 Other retention of urine; I10 Essential (primary) hypertension; Z87.891 Personal history of nicotine dependence; Z87.898 Personal history of other specified conditions
CPT/HCPCS: 36415; 80048; 80053; 85025